=== PATIENT | male | born 1950 | race Caucasian/White ===

== ENCOUNTER → 2017-10-10 10:44 | Outpatient (CLI) | payer MEDICARE, SELFPAY ==
[2017-10-10 12:12] LABS: Absolute Lymphocyte Count 2.08 X10^3/ul (0.83-4.51); Absolute Neutrophil Count 4.5 X10^3/uL (2.0-7.7); Basophil# 0.01 X10^3/uL; Basophil% 0.1 % (0-1); Eosinophil# 0.05 X10^3/uL; Eosinophils% 0.7 % (0-5); Hematocrit 38.5 % (40-54); Hemoglobin 13.4 g/dl (13.0-16.5); Lymphocyte # 2.08 X10^3/ul (4.0); Lymphocyte % 29.5 % (19-41); Mean Corp Hgb Conc 34.8 g/gl (32-36); Mean Corpuscular Volume 91.9 fL (80-94); Mean Platelet Vol. 9.6 fl (6.2-12.0); Monocyte# 0.43 X10^3/uL; Monocyte% 6.1 % (0-10); Neutrophil # 4.47 X10^3/uL (2.7-7.7); Neutrophil % 63.3 % (47-70); Platelet Count 232 K/mm3 (150-450); RBC Distribution Width CV 13.2 % (11.6-14.6); RBC Distribution Width SD 43.6 fl (35.1-43.9); Red Blood Count 4.19 M/mm3 (4.6-6.2); White Blood Count 7.1 K/mm3 (4.4-11.0)
[2017-10-10 12:15] LABS: POSITIVE COUNT NO; POSITIVE DIFFERENTIAL NO; POSITIVE MORPHOLOGY NO
[2017-10-10 12:49] LABS: Anion Gap 12 (5-15); BUN 12 mg/dL (7-18); BUN/Creat Ratio 17.9 RATIO (10-20); Chloride 106 mmol/L (98-107); Cholesterol 156 mg/dL (200); Creatinine, Serum 0.67 mg/dL (0.70-1.30); EST Glomerular Filtration Rate 127 mL/min (>60); Est Glom Filt Rate - Afr Amer 153 mL/min (>60); Glucose 79 mg/dL (74-106); High Density Lipoprotein 56 mg/dL; PSA,Total - Annual Screen 0.64 ng/mL (0.00-4.00); Potassium 3.4 mmol/L (3.5-5.1); Sodium Level 140 mmol/L (136-145); Triglycerides 61 mg/dL; Very Low Density Lipoprotein 12 mg/dL (5-40)
== END ==
PROVIDERS: Family Provider Family Medicine; PCP Family Medicine; Visit Provider Family Medicine
DX: I10 Essential (primary) hypertension (principal); N40.0 Benign prostatic hyperplasia without lower urinary tract symptoms
CPT/HCPCS: 36415; 80048; 80061; 84153; 85025; G0103

== ENCOUNTER → 2018-10-09 17:11 | Outpatient (CLI) | payer OTHER, SELFPAY ==
--- NOTE | 2018-10-09 17:18 | CT_ITS ---
Exam: Noncontrast CT of the right distal forearm and wrist. 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 FINDINGS: There is comminuted fracture through the distal radial metaphysis with extension into the articular surface. No displacement or distraction fragments. No significant impaction. No significant distraction of fragments. Nondisplaced fracture through the tip of the ulna. No dislocations. No disruption of the radioulnar joint. No other fractures or dislocations. Degenerative changes throughout the wrist. Grossly normal soft tissues. CT/Extremity Upper without Contra IMPRESSION: There is comminuted fractures through the distal radial metaphysis extending into the articular surface. No significant distraction, displacement, or impaction of the fracture fragments. Nondisplaced fracture of the tip of the ulnar styloid. Electronically Signed: Stoney Schumacher MD at 18:05 EDT , Service support ,
== END ==
PROVIDERS: Family Provider Family Medicine; PCP Family Medicine; Referring Provider Physician Assistant; Visit Provider Physician Assistant
DX: S52.571A Other intraarticular fracture of lower end of right radius, initial encounter for closed fracture (principal); X58.XXXA Exposure to other specified factors, initial encounter; Y93.9 Activity, unspecified; Y92.9 Unspecified place or not applicable; Y99.9 Unspecified external cause status
CPT/HCPCS: 73200

== ENCOUNTER → 2018-11-16 09:23 | Outpatient (CLI) | payer MEDICARE, SELFPAY ==
[2018-11-16 12:50] LABS: Anion Gap 6 (5-15); BUN 11 mg/dL (7-18); BUN/Creat Ratio 18.2 RATIO (10-20); Calcium,Total 8.9 mg/dL (8.5-10.1); Chloride 109 mmol/L (98-107); Cholesterol 155 mg/dL (200); EST Glomerular Filtration Rate 142 mL/min (>60); Est Glom Filt Rate - Afr Amer 172 mL/min (>60); Glucose 86 mg/dL (74-106); High Density Lipoprotein 53 mg/dL; PSA,Total - Annual Screen 0.62 ng/mL (0.00-4.00); Potassium 4.1 mmol/L (3.5-5.1); Sodium Level 141 mmol/L (136-145); Triglycerides 52 mg/dL; Very Low Density Lipoprotein 10 mg/dL (5-40)
== END ==
PROVIDERS: Family Provider Family Medicine; PCP Family Medicine; Visit Provider Family Medicine
DX: I10 Essential (primary) hypertension (principal); N40.0 Benign prostatic hyperplasia without lower urinary tract symptoms
CPT/HCPCS: 36415; 80048; 80061; 84153; G0103

== ENCOUNTER → 2020-05-12 08:26 | Outpatient (CLI) | payer MEDICARE, SELFPAY ==
[2020-05-12 10:49] LABS: AST(SGOT) 16 U/L (15-37); Alanine Aminotransfer ALT/SGPT 25 U/L (16-61); Albumin, Serum 3.6 g/dL (3.2-5.0); Alkaline Phosphatase 76 U/L (45-117); Anion Gap 5 (5-15); BUN 11 mg/dL (7-18); BUN/Creat Ratio 18.3 RATIO (10-20); Calcium,Total 8.6 mg/dL (8.5-10.1); Chloride 107 mmol/L (98-107); Cholesterol 152 mg/dL (200); EST Glomerular Filtration Rate 142 mL/min (>60); Est Glom Filt Rate - Afr Amer 172 mL/min (>60); Globulin 3.6 g/dL (2.2-4.2); Glucose 86 mg/dL (74-106); High Density Lipoprotein 51 mg/dL; PSA,Total - Annual Screen 0.58 ng/mL (0.00-4.00); Potassium 3.9 mmol/L (3.5-5.1); Protein, Total 7.2 g/dL (6.4-8.2); Sodium Level 137 mmol/L (136-145); Triglycerides 68 mg/dL; Very Low Density Lipoprotein 14 mg/dL (5-40)
[2020-05-12 11:17] LABS: Hepatitis C Antibody Non-Reactive (Nonreactive)
== END ==
PROVIDERS: PCP Family Medicine; Referring Provider Family Medicine; Visit Provider Family Medicine
DX: I10 Essential (primary) hypertension (principal); N40.0 Benign prostatic hyperplasia without lower urinary tract symptoms; Z11.59 Encounter for screening for other viral diseases; Z12.5 Encounter for screening for malignant neoplasm of prostate
CPT/HCPCS: 36415; 80053; 80061; 84153; 86803; G0103

== ENCOUNTER → 2021-06-15 | Outpatient (CLI) | payer MEDICARE, SELFPAY ==
[2021-06-15 10:51] LABS: AST(SGOT) 19 U/L (15-37); Alanine Aminotransfer ALT/SGPT 25 U/L (16-61); Albumin, Serum 3.5 g/dL (3.2-5.0); Alkaline Phosphatase 73 U/L (45-117); Anion Gap 4 (5-15); BUN 16 mg/dL (7-18); BUN/Creat Ratio 23.1 RATIO (10-20); Calcium,Total 8.2 mg/dL (8.5-10.1); Chloride 109 mmol/L (98-107); Cholesterol 157 mg/dL (200); Creatinine, Serum 0.69 mg/dL (0.70-1.30); EST Glomerular Filtration Rate 120 mL/min (>60); Est Glom Filt Rate - Afr Amer 146 mL/min (>60); Globulin 3.4 g/dL (2.2-4.2); Glucose 94 mg/dL (74-106); High Density Lipoprotein 48 mg/dL; Potassium 3.9 mmol/L (3.5-5.1); Protein, Total 6.9 g/dL (6.4-8.2); Sodium Level 141 mmol/L (136-145); Triglycerides 53 mg/dL; Very Low Density Lipoprotein 11 mg/dL (5-40)
== END | disposition home or self-care (01) ==
LOC: MFPLAB 09:08
PROVIDERS: PCP Family Medicine; Referring Provider Family Medicine; Visit Provider Family Medicine
DX: I10 Essential (primary) hypertension (principal); N40.0 Benign prostatic hyperplasia without lower urinary tract symptoms; Z12.5 Encounter for screening for malignant neoplasm of prostate
CPT/HCPCS: 36415; 80053; 80061; 84153; G0103

== ENCOUNTER → 2021-08-10 | Outpatient (CLI) | payer MEDICARE, SELFPAY ==
--- NOTE | 2021-08-10 09:12 | RAD_ITS ---
STUDY: XR Wrist Min 3 Views REASON FOR EXAM: Male, 71 years old. Technologist Notes RECENT FALL, PAIN AND SWELLING TO LEFT WRIST left wrist pain TECHNIQUE: XR Wrist Min 3 Views LEFT COMPARISON: None FINDINGS: There are no acute findings of the visualized distal radius and ulna. There are no acute findings of the radiocarpal articulation. Normal distal radioulnar articulation. Normal carpal bones. Normal carpal articulations. There is degenerative arthrosis of the carpometacarpal articulation of the thumb. Normal second through fifth carpometacarpal articulations. There are no acute findings of the visualized metacarpal bones. There is non specific soft tissue swelling. There is calcification in the joint space which may signify calcium pyrophosphate deposition disease. RAD/Wrist min 3 Views IMPRESSION: There is non specific soft tissue swelling. Electronically Signed: Tuan Andres MD at 17:00 EDT ,
== END | disposition home or self-care (01) ==
LOC: MTRAD 09:09
PROVIDERS: PCP Family Medicine; Referring Provider Family Medicine; Visit Provider Family Medicine
DX: S69.92XA Unspecified injury of left wrist, hand and finger(s), initial encounter (principal)
CPT/HCPCS: 73110

== ENCOUNTER → 2022-07-15 | Outpatient (CLI) | payer MEDICARE, SELFPAY ==
[2022-07-15 11:26] LABS: Anion Gap 6 (5-15); BUN 13 mg/dL (7-18); BUN/Creat Ratio 19.4 RATIO (10-20); Chloride 111 mmol/L (98-107); Cholesterol 156 mg/dL (200); Creatinine, Serum 0.67 mg/dL (0.70-1.30); EST Glomerular Filtration Rate 124 mL/min (>60); Est Glom Filt Rate - Afr Amer 151 mL/min (>60); Glucose 100 mg/dL (74-106); High Density Lipoprotein 50 mg/dL; PSA,Total - Annual Screen 0.69 ng/mL (0.00-4.00); Potassium 4.2 mmol/L (3.5-5.1); Sodium Level 141 mmol/L (136-145); Triglycerides 76 mg/dL; Very Low Density Lipoprotein 15 mg/dL (5-40)
== END | disposition home or self-care (01) ==
LOC: MFPLAB 09:07
PROVIDERS: PCP Family Medicine; Visit Provider Family Medicine
DX: I10 Essential (primary) hypertension (principal); N40.0 Benign prostatic hyperplasia without lower urinary tract symptoms; Z12.5 Encounter for screening for malignant neoplasm of prostate
CPT/HCPCS: 36415; 80048; 80061; 84153; G0103

== ENCOUNTER → 2022-12-16 | Outpatient (CLI) | payer MEDICARE, SELFPAY ==
[2022-12-16 15:11] LABS: Hematocrit 40.8 % (40-54); Mean Corp Hgb Conc 34.3 g/dL (32-36); Mean Corpuscular Hgb 31.9 pg (27.0-32.0); Mean Corpuscular Volume 92.9 fL (80-94); Platelet Count 221 K/mm3 (150-450); RBC Distribution Width CV 12.7 % (11.6-14.6); RBC Distribution Width SD 43.8 fl (35.1-43.9); Red Blood Count 4.39 M/mm3 (4.6-6.2); White Blood Count 8.1 K/mm3 (4.4-11.0)
[2022-12-16 15:35] LABS: Anion Gap 6 (5-15); BUN 15 mg/dL (7-18); BUN/Creat Ratio 23.5 RATIO (10-20); Calcium,Total 9.2 mg/dL (8.5-10.1); Chloride 107 mmol/L (98-107); Creatinine, Serum 0.64 mg/dL (0.70-1.30); EST Glomerular Filtration Rate 131 mL/min (>60); Est Glom Filt Rate - Afr Amer 159 mL/min (>60); Glucose 87 mg/dL (74-106); Magnesium 2.3 mg/dL (1.6-2.6); Potassium 3.8 mmol/L (3.5-5.1); Sodium Level 140 mmol/L (136-145); Thyroid Stim Hormone (TSH) 2.24 uIU/mL (0.358-3.74)
== END | disposition home or self-care (01) ==
LOC: MTLAB 12:45
PROVIDERS: PCP Family Medicine; Referring Provider Family Medicine; Visit Provider Family Medicine
DX: I48.92 Unspecified atrial flutter (principal); Z79.899 Other long term (current) drug therapy
CPT/HCPCS: 36415; 80048; 83735; 84443; 85027

== ENCOUNTER → 2023-01-20 | Outpatient (CLI) | payer MEDICARE, SELFPAY ==
[2023-01-20 12:31] LABS: Anion Gap 7 (5-15); BUN 14 mg/dL (7-18); BUN/Creat Ratio 20.1 RATIO (10-20); Calcium,Total 8.7 mg/dL (8.5-10.1); Chloride 107 mmol/L (98-107); EST Glomerular Filtration Rate 119 mL/min (>60); Est Glom Filt Rate - Afr Amer 144 mL/min (>60); Glucose 112 mg/dL (74-106); Potassium 3.6 mmol/L (3.5-5.1); Sodium Level 140 mmol/L (136-145)
== END | disposition home or self-care (01) ==
PROVIDERS: PCP Family Medicine; Referring Provider Internal Medicine Cardiovascular Disease; Visit Provider Internal Medicine Cardiovascular Disease
DX: I48.91 Unspecified atrial fibrillation (principal); R53.83 Other fatigue; Z86.79 Personal history of other diseases of the circulatory system
CPT/HCPCS: 36415; 80048

== ENCOUNTER → 2023-05-21 | Outpatient (CLI) | payer MEDICARE, SELFPAY ==
--- NOTE | 2023-05-21 12:37 | RAD_ITS ---
STUDY: X-RAY - UNILATERAL RIBS ( LEFT ) WITH CHEST REASON FOR EXAM: Male, 73 years old. pain after fall TECHNIQUE - RIBS: 4 view(s) of the ribs. TECHNIQUE - CHEST: Single PA view of the chest. COMPARISON: None. FINDINGS - RIBS: Healed fracture of the lateral left fourth rib. Nondisplaced fractures lateral left sixth, seventh, eighth, ninth ribs. FINDINGS - CHEST: The lungs are clear and expanded. There is no demonstrated pleural abnormality. Normal size heart. Normal mediastinum and tim. Normal visualized pulmonary arteries. Normal visualized aortic arch and descending thoracic aorta. Normal visualized thoracic spine. Normal visualized ribs, clavicles, and shoulders. There is no demonstrated abnormality of the visualized soft tissue structures of the upper abdomen. RAD/Ribs Uni Min 3V w/PA Chest IMPRESSION: RIBS: Acute nondisplaced fracture the lateral left sixth, seventh, eighth, ninth ribs. CHEST: No pneumothorax or hemothorax. Electronically Signed: Umberto Concepcion MD at 20:26 EDT ,
== END | disposition home or self-care (01) ==
PROVIDERS: PCP Family Medicine; Referring Provider Family Medicine; Visit Provider Family Medicine
DX: I48.91 Unspecified atrial fibrillation (principal)
CPT/HCPCS: 71101

== ENCOUNTER → 2023-11-17 | Outpatient (CLI) | payer MEDICARE, SELFPAY ==
[2023-11-17 16:20] LABS: ALB/GLOB Ratio 1.1 RATIO (0.9-2.4); AST(SGOT) 22 U/L (15-37); Alanine Aminotransfer ALT/SGPT 25 U/L (16-61); Albumin, Serum 3.8 g/dL (3.2-5.0); Alkaline Phosphatase 85 U/L (45-117); Anion Gap 7 (5-15); BUN 9 mg/dL (7-18); BUN/Creat Ratio 14.3 RATIO (10-20); Calcium,Total 9.3 mg/dL (8.5-10.1); Chloride 107 mmol/L (98-107); Cholesterol 168 mg/dL (200); Creatinine, Serum 0.63 mg/dL (0.70-1.30); EST Glomerular Filtration Rate 134 mL/min (>60); Est Glom Filt Rate - Afr Amer 162 mL/min (>60); Globulin 3.5 g/dL (2.2-4.2); Glucose 82 mg/dL (74-106); High Density Lipoprotein 54 mg/dL; PSA,Total - Annual Screen 0.59 ng/mL (0.00-4.00); Potassium 3.7 mmol/L (3.5-5.1); Protein, Total 7.3 g/dL (6.4-8.2); Sodium Level 140 mmol/L (136-145); Triglycerides 71 mg/dL; Very Low Density Lipoprotein 14 mg/dL (5-40)
== END | disposition home or self-care (01) ==
LOC: MTLAB 11:20
PROVIDERS: PCP Family Medicine; Referring Provider Family Medicine; Visit Provider Family Medicine
DX: Z12.5 Encounter for screening for malignant neoplasm of prostate (principal); I10 Essential (primary) hypertension
CPT/HCPCS: 36415; 80053; 80061; 84153; G0103

== ENCOUNTER → 2024-11-26 | Outpatient (CLI) | payer MEDICARE, SELFPAY ==
--- OUTSIDE RECORDS SUMMARY | 2024-11-26 09:01 | XMS RPT_ITS | CCD ---
Author Organization [facility] Care Team Providers Care Chemical Unit Operator Name Role Phone Miguel Angel HUBER, Martine Sue Unavailable YNES Herman RN, Maggie Pia Unavailable Unavailhawa Herman RN RN, Maggie A Unavailable Unavailhawa Herman RN RN, Maggie A Unavailable Unavailhawa Michelle MD, Martine Sue Unavailable YNES Herman RN, Maggie A Unavailable Caridad DAMIAN MD, DR KEITA Primary Care Physician MARIUSZ HUBER, SALLY Attending Unavailable YNES HUBER, DR KEITA Primary Care Faraz VEE MD, SALLY Attending Unavailable YNES HUBER, DR KEITA Primary Care Dr. Neil Mixon Primary Care Provider Dr. Neil Damian Referring Provider Dr. Zane Bowles Attending Provider Dr. Bossman Damian MD Primary Care Provider Dr. Bossman Damian MD Referring Provider [phone] Dr. Zane Bowles MD Attending Provider Bossman Damian Primary Care Unavailable Zane Bowles Attending Unavailable Bossman Damian Referring Unavailable Bossman Damian Referring Unavailable Bossman Damian Attending Unavailable Bossman Damian Primary Care Unavailable Medications Current Medications Medication Drug Class(es) Dates Sig (Normalized) Sig (Original) amLODIPine 5 mg oral tablet (1 source) Dihydropyridine Calcium Channel Violeta Start: 10-14-2024 take 1 tablet by mouth once daily Amlodipine 5 mg tablet Active 5 mg PO daily October 14, 2024 12:00am 24 hr dilTIAZem hydrochloride 180 mg extended release oral tablet (5 sources) Calcium Channel Violeta Start: 01-22-2023 take 1 tablet by mouth every hour, then take 1 tablet by mouth once daily dilTIAZem 180 mg/24 hours oral tablet, extended release Dose : 180 mg = 1 tab(s), Oral, qDay, # 60 tab(s), 0 Refill(s) Start Date: 01/22/23 Status: Ordered Start: 01-08-2023 End: 10-14-2024 take 1 capsule by mouth once daily Diltiazem Hcl 180 mg capsule,extended release 24 hr Discontinued 180 mg PO DAILY January 08, 2023 1:00am October 14, 2024 1:08pm hydroCHLOROthiazide 12.5 mg oral tablet (1 source) Thiazide Diuretic Start: 04-06-2019 take 1 tablet by mouth once daily hydroCHLOROthiazide 12.5 mg oral tablet TAKE 1 TABLET BY MOUTH ONCE DAILY Start Date: 04/06/19 Status: Ordered hydroCHLOROthiazide 25 mg / losartan potassium 100 mg oral tablet (15 sources) Thiazide Diuretic, Angiotensin 2 Receptor Violeta Start: 01-08-2023 take 1 tablet by mouth once daily hydrochlorothiazide-gunnar gaetano 25-100 mg oral tablet Dose = 1 tab(s), Oral, qDay, # 30 tab(s), 0 Refill(s) Start Date: 01/22/23 Status: Ordered Start: 01-08-2023 take 1 tablet by sea th once daily Losartan-Hydrochlorothiazide Active 1 TA BLET PO DAILY January 08, 2023 1:00am Start: 12-27-2022 End: 01-08-2023 Losartan-Hydrochlorothiazide 50-12.5 mg tablet Discontinued 1 {tbl} PO DAILY December 27, 2022 1:00am January 08, 2023 10:46am Start: 12-27-2022 End: 01-08-2023 take 1 tablet by mouth once daily Losartan-Hydrochlorothiazide Discontinue d 1 TABLET PO DAILY December 27, 2022 1:00am January 08, 2023 10:46am Start: 07-23-2016 take 1 tablet by sea th once daily HYZAAR 50-12.5 MG TABS One tablet by sea th daily LOSARTAN POTASSIUM-HCTZ [id number] Krystle Abarca Start: 07-23-2016 take 1 tablet by sea th once daily HYZAAR 50-12.5 MG TABS One tablet by sea th daily LOSARTAN POTASSIUM-HCTZ [id number] Krystle Abarca losartan potassium 50 mg oral tablet (1 source) Angiotensin 2 Receptor Violeta Start: 04-06-2019 take 1 tablet by mouth once daily losartan 50 mg oral tablet TAKE 1 TABLET BY MOUTH ONCE DAILY Start Date: 04/06/19 Status: Ordered tamsulosin hydrochloride 0.4 mg oral capsule (13 sources) alpha-Adrenergic Violeta Start: 10-07-2018 take 1 capsule by mouth at bedtime Tamsulosin 0.4 mg capsule Active 0.4 mg PO AT BEDTIME December 27, 2022 1:00am Start: 07-23-2016 take 1 tablet by sea th once daily FLOMAX 0.4 MG CAPS One tablet by mouth daily TAMSULOSIN HCL [id number] Krystle Abarca Completed/Discontinued Medications Medication Drug Class(es) Dates Sig (Normalized) Sig (Original) apixaban 5 mg oral tablet (7 sources) Factor Xa Inhibitor Start: 12-27-2022 End: 11-18-2023 take 1 tablet by mouth twice daily Apixaban (Eliquis) 5 mg tablet Discontinued 5 mg PO TWICE A DAY November 18, 2023 12:00am November 18, 2023 9:35am aspirin 81 mg delayed release oral tablet (1 source) Platelet Aggregation Inhibitor, Nonsteroidal Anti-inflammatory Drug Start: 11-17-2023 End: 10-14-2024 Aspirin (Adult Low Dose Aspirin) 81 mg tablet,delayed release (DR/EC) Discontinued 81 mg PO daily November 17, 2023 12:00am October 14, 2024 1:07pm desoximetasone 0.0005 mg/mg topical gel (10 sources) Corticosteroid Start: 12-27-2022 End: 10-14-2024 Desoximetasone 0.05 % gel Discontinued 1 NMA TOPICAL DAILY as needed December 27, 2022 1:00am October 14, 2024 1:08pm Start: 07-23-2016 DESOXIMETASONE 0.05 % GEL as needed DESOXIMETASONE [id number] Krystle Abarca ibuprofen 200 mg oral tablet (7 sources) Nonsteroidal Anti-inflammatory Drug Start: 07-23-2016 ADVIL 200 MG TABS 800mg as needed IBUPROFEN [id number] Krystle Abarca metoprolol tartrate 50 mg oral tablet (3 sources) beta-Adrenergic Voileta Start: 12-27-2022 End: 01-08-2023 take 1 tablet by mouth twice daily Metoprolol Tartrate 50 mg tablet Discontinued 50 mg PO TWICE A DAY December 27, 2022 1:00am January 08, 2023 10:45am rizatriptan 10 mg oral tablet (7 sources) Serotonin-1b and Serotonin-1d Receptor Agonist Start: 07-23-2016 take 1 tablet by mouth once daily as needed RIZATRIPTAN BENZOATE 10 MG TABS One tablet by mouth daily as needed RIZATRIPTAN BENZOATE [id number] Krystle Abarca warfarin sodium 4 mg oral tablet (1 source) Vitamin K Antagonist Start: 11-18-2023 End: 10-14-2024 take 1 tablet by mouth once daily Warfarin 4 mg tablet Discontinued 4 mg PO daily 09 01November 18, 2023 12:00am October 14, 2024 1:08pm Problems Active Problems Problem Classification Problem Date Documented Date Episodic/Chronic Cardiac dysrhythmias (18 sources) Atrial fibrillation; Translations: [Atrial flutter] Onset: 07-23-2016 07-23-2016 Chronic Essential hypertension (5 sources) Essential hypertension; Translations: [Essential (primary) hypertension] 01-08-2023 Chronic Malaise and fatigue (4 sources) Fatigue; Translations: [Other fatigue] 01-08-2023 Episodic Other circulatory disease (4 sources) History of paroxysmal supraventricular tachycardia; Translations: [Personal history of other diseases of the circulatory system] 01-08-2023 Episodic Other circulatory disease (2 sources) Personal history of other diseases of the circulatory system; Translations: [Personal history of other diseases of circulatory system] Onset: 10-14-2024 01-08-2023 Episodic Other nutritional; endocrine; and metabolic disorders (7 sources) Overweight; Translations: [Overweight] Onset: 07-23-2016 07-23-2016 Chronic Past or Other Problems Problem Classification Problem Date Documented Da te Episodic/Chronic Headache; including migraine (7 sources) Headache; Translations: [Headache] Onset: 07-23-2016 07-23-2016 Episodic Nonmalignant breast conditions (11 sources) Gynecomastia; Translations: [Breast lump] Onset: 07-23-2016 08-02-2016 Episodic Other screening for suspected conditions (not mental disorders or infectious disease) (1 source) Encounter for screening for malignant neoplasm of prostate; Translations: [Encounter for screening for malignant neoplasm of prostate] Onset: 12-13-2023 Episodic Spondylosis; intervertebral disc disorders; other back problems (7 sources) Backache; Translations: [Dorsalgia, unspecified] Onset: 07-23-2016 07-23-2016 Episodic Results Test Name Value Interpretation Reference Range Facility Cardiology Visit Reporton Cardiology Visit Report [facility] [address] [place] [address] OFFICE VISIT Date of Service: 10/14/24 MR#: [id number] Acct: [id number] Name: DAMI KINNEY Rep #: [id number] : 1950 Provider: Dr. Zane Bowles MD Age/Sex: 74/M Location: [facility] Status: Signed HPI HPI History of Present Illness Details: This gentleman with history of atrial flutter/fibrillation and hypertension is here for follow-up visit. We last saw him in 2022. According to the patient, he has had A-fib ablation done at [facility] last year. Denies any complaints today. No chest pains. No shortness of breath. No palpitations. No orthopnea PND. No ankle edema. 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 Required: No Accompanied by: Self Is patient in pain?: No Allergies No Known Allergies Allergy (Verified 10/14/24 13:06) Medications ???Medication ???Instructions ???Recorded ???Confirmed ???Type tamsulosin 0.4 mg capsule 0.4 mg PO QHS 12/27/22 10/14/24 Hi story losartan 100 1 tab PO DAILY #90 tabs 01/08/23 0 10/14/24 Rx mg-hydrochlorothiazide 25 mg tablet apixaban 5 mg tablet (Eliquis) 5 mg PO .COMPLEX #180 tabs 4 10/14/24 Rx amlodipine 5 mg tablet 5 mg PO QDAY 10/14/24 10/14/24 His tory Ejection fraction %: 50 Have you fallen in the past year?: No PFSH Medical History PSVT (paroxysmal supraventricular tachycardia) Atrial flutter Essential hypertension Surgical History History of cardiac radiofrequency ablation (RFA) ( 1995) Family History Mother Cancer COPD (chronic obstructive pulmonary disease) Heart disease Social History Smoking Status: Never smoker how long ago did patient quit smoking: smoked cigar occasionally long time ago alcohol intake: current alcohol intake frequency: a few times a month substance use type: does not use caffeine: Yes Type: coffee Number of servings: 4 ROS Const Const: Negative for fatigue or weakness Eyes Eyes: Negative for change in vision ENT ENT: Negative for dizziness or balance problems Cardio Chest Pain: No Palpitations: No Edema: None Resp Respiratory: Negative for SOB with activity, SOB at rest or SOB orthopnea SOB lying down GI GI: Negative nausea or heartburn Musc Musc: Negative for balance problems Neuro Neuro: Negative for dizziness, lightheadedness, near syncope, syncope or weakness Endo Endo: Negative for fatigue Cardiology Exam Const Appearance: comfortable and no acute distress Nutritional Appearance: well nourished Neck Neck: no JVD Carotids: Negative bruit Chest Auscultation: Bilateral: Clear to Auscultation Cardio Rate: regular rate Rhythm: regular rhythm Heart sounds: S1 normal and S2 normal Neuro General: patient alert, patient awake and patient oriented x3 Extremities Lower Extremity Edema: None: Bilateral Supplemental Info Supplemental Information Labs: LDL Cholesterol 100 mg/dL (0-130) HDL Cholesterol 54 mg/dL (40-) Cholesterol 168 mg/dL (200) Triglycerides 71 mg/dL (-199) Diagnostics: Electrocardiogram Pulmonary: No Data to Display Past Visits: Cardiology Visit 10/14/24 Assessment and Plan Assessment and Plan (1) Atrial fibrillation: Status: Chronic Plan: Status post ablation. Will try to get records from [facility]. Patient's CHADS2???VASc score is 2. Continue apixaban. (2) Essential hypertension: Status: Chronic Plan: Continue losartan hydrochlorothiazide and amlodipine. (3) History of PSVT (paroxysmal supraventricular tachycardia): Status: Resolved Plan: History of ablation. Plan Details Additional Comments: Lipid management as per PCP. Follow Up: 12 Months Coding Level of Care Code Off vis,est,level 4 Diagnoses Atrial fibrillation I48.91 Essential hypertension I10 History of PSVT (paroxysmal supraventricular tachycardia) Z86.79 Coding Level of Care Code Off vis,est,level 4 Diagnoses Atrial fibrillation I48.91 Essential hypertension I10 History of PSVT (paroxysmal supraventricular tachycardia) Z86.79 Clinical Quality Measures Falls Risk Screening/Assistive Devices Have you fallen in the past year?: No Cardiac Ejection fraction %: 50 10/14/24 1344 Date Zane (more content not included)... Normal [facility] Metabolic Prof ilon 11-17-2023 Albumin [Mass/Vol] 3.8 g/dL Normal 3.2-5.0 [facility] Comment on above: Order Comment: Order Date: 07/28/23 Order Info: [id number] - CMP Order Info: [id number] - LIPID Order Info: [id number] - PSA Performed By: #### L 500.4100, L500.4050, L501.9910 #### [facility] [place], [address] Albumin/Globulin [Mass ratio] 1.1 {ratio} Normal 0.9-2.4 [facility] Comment on above: Order Comment: Order Date: 07/28/23 Order Info: [id number] - CMP Order Info: [id number] - LIPID Order Info: [id number] - PSA Performed By: #### L 500.4100, L500.4050, L501.9910 #### [facility] [address] [place], [address] ALK P 85 U/L Normal 45-117 [facility] Comment on above: Order Comment: Order Date: 07/28/23 Order Info: [id number]- - CMP Order Info: - LIPID Order Info: [id number] - PSA Performed By: #### L 500.4100, L500.4050, [id number] #### [facility] [address] [place], [address] ALT [Catalytic activity/Vol] 25 U/L Normal 16-61 [facility] Comment on above: Order Comment: Order Date: 07/28/23 Order Info: [id number] - CMP Order Info: - LIPID Order Info: [id number] - PSA Performed By: #### L 500.4100, L500.4050, [id number] #### [facility] [address] [place], [address] AST [Catalytic activity/Vol] 22 U/L Normal 15-37 [facility] Comment on above: Order Comment: Order Date: 07/28/23 Order Info: [id number] - CMP Order Info: - LIPID Order Info: [id number] - PSA Performed By: #### L 500.4100, L500.4050, L501.9910 #### [facility] [address] [place], [address] Bilirubin [Mass/Vol] 0.60 mg/dL Normal 0.20-1.00 [facility] Comment on above: Order Comment: Order Date: 07/28/23 Order Info: [id number] - CMP Order Info: [id number] - LIPID Order Info: [id number] - PSA Result Comment: For patients on eltrombopag therapy, use of Dimension Hartman TBIL is not recommended. Performed By: #### L 500.4100, L500.4050, L501.9910 #### [facility] [address] [place], [address] BUN/CRE 14.3 RATIO Normal 10-20 [facility] Comment on above: Order Comment: Order Date: 07/28/23 Order Info: [id number] - CMP Order Info: [id number] - LIPID Order Info: [id number] - PSA Performed By: #### L 500.4100, L500.4050, [id number] #### [facility] [address] [place], [address] CA,Total 9.3 mg/dL Normal 8.5-10.1 [facility] Comment on above: Order Comment: Order Date: 07/28/23 Order Info: [id number] - CMP Order Info: - LIPID Order Info: [id number] - PSA Performed By: #### L 500.4100, L500.4050, [id number] #### [facility] [address] [place], [address] Chloride [Moles/Vol] 107 mmol/L Normal 98-107 [facility] Comment on above: Order Comment: Order Date: 07/28/23 Order Info: [id number] - CMP Order Info: [id number] - LIPID Order Info: [id number] - PSA Performed By: #### L 500.4100, L500.4050, [id number] #### [facility] [address] [place], [address] CO2 [Moles/Vol] 26.0 mmol/L Normal 21.0-32.0 [facility] Comment on above: Order Comment: Order Date: 07/28/23 Order Info: [id number] - CMP Order Info: [id number] - LIPID Order Info: [id number] - PSA Performed By: #### L 500.4100, L500.4050, [id number] #### [facility] [address] [place], [address] Creatinine [Mass/Vol] 0.63 mg/dL Low 0.70-1.30 [facility] Comment on above: Order Comment: Order Date: 07/28/23 Order Info: 07- - CMP Order Info: [id number] - LIPID Order Info: [id number] - PSA Result Comment: The validity of the calculated GFR GFRAA in patients over 70 years has not been determined. Clinical correlation is essential. Performed By: #### L 500.4100, L500.4050, L501.9910 #### [facility] [address] [place], [address] EST GFR - AA 162 mL/min Normal >60 [facility] Comment on above: Order Comment: Order Date: 07/28/23 Order Info: [id number] - CMP Order Info: - LIPID Order Info: [id number] - PSA Result Comment: Afri can Malaysian GFR Calc Performed By: #### L 500.4100, L500.4050, [id number] #### [facility] [address] [place], [address] GAP 7 Normal 5-15 [facility] Comment on above: Order Comment: Order Date: 07/28/23 Order Info: [id number] - CMP Order Info: [id number] - LIPID Order Info: [id number] - PSA Performed By: #### L 500.4100, L500.4050, [id number] #### [facility] [address] [place], [address] GFR/1.73 sq M.predicted among non-blacks MDRD (S/P/Bld) [Vol rate/Area] 134 mL/min/{1.73_m2} Normal >60 [facility] Comment on above: Order Comment: Order Date: 07/28/23 Order Info: 07- - CMP Order Info: - LIPID Order Info: [id number] - PSA Result Comment: Non- GFR Calc Performed By: #### L 500.4100, L500.4050, [id number] #### [facility] [address] [place], [address] Globulin (S) [Mass/Vol] 3.5 g/dL Normal 2.2-4.2 [facility] Comment on above: Order Comment: Order Date: 07/28/23 Order Info: [id number]- - CMP Order Info: - LIPID Order Info: [id number] - PSA Performed By: #### L 500.4100, L500.4050, [id number] #### [facility] [address] [place], [address] Glucose [Mass/Vol] 82 mg/dL Normal 74-106 [facility] Comment on above: Order Comment: Order Date: 07/28/23 Order Info: [id number] - CMP Order Info: - LIPID Order Info: [id number] - PSA Performed By: #### L 500.4100, L500.4050, [id number] #### [facility] [address] [place], [address] Potassium [Moles/Vol] 3.7 mmol/L Normal 3.5-5.1 [facility] Comment on above: Order Comment: Order Date: 07/28/23 Order Info: [id number] - CMP Order Info: - LIPID Order Info: [id number] - PSA Performed By: #### L 500.4100, L500.4050, [id number] #### [facility] [address] [place], [address] Sodium [Moles/Vol] 140 mmol/L Normal 136-145 [facility] Comment on above: Order Comment: Order Date: 07/28/23 Order Info: [id number] - CMP Order Info: [id number] - LIPID Order Info: [id number] - PSA Performed By: #### L 500.4100, L500.4050, [id number] #### [facility] [address] [place], [address] T PROT 7.3 g/dL Normal 6.4-8.2 [facility] Comment on above: Order Comment: Order Date: 07/28/23 Order Info: [id number] - CMP Order Info: [id number] - LIPID Order Info: [id number] - PSA Performed By: #### L 500.4100, L500.4050, [id number] #### [facility] [address] [place], [address] Urea nitrogen [Mass/Vol] 9 mg/dL Normal 7-18 [facility] Comment on above: Order Comment: Order Date: 07/28/23 Order Info: [id number] - CMP Order Info: [id number] - LIPID Order Info: [id number] - PSA Performed By: #### L 500.4100, L500.4050, [id number] #### [facility] [address] [place], [address] Lipid Profileon 11-17-2023 Cholesterol [Mass/Vol] 168 mg/dL Normal 200 [facility] Comment on above: Order Comment: Order Date: 07/28/23 Order Info: [id number] - CMP Order Info: [id number] - LIPID Order Info: [id number] - PSA Result Comment: <200 mg/dL Desirable 200-240 mg/dL Borderline >240 mg/dL High Risk Performed By: #### L 500.4100, L500.4050, [id number] #### [facility] [address] [place], [address] Cholesterol in HDL [Mass/Vol] 54 mg/dL Normal [facility] Comment on above: Order Comment: Order Date: 07/28/23 Order Info: [id number] - CMP Order Info: [id number] - LIPID Order Info: [id number] - PSA Result Comment: The drugs N-Acetylcysteine and Metamizole may falsely depress this assay. Reference Range HDL <40 mg/dL Low HDL Cholesterol HDL >or= 60 mg/dL High HDL Cholesterol Performed By: #### L 500.4100, L500.4050, L501.9910 #### [facility] [address] [place], [address] Cholesterol in LDL [Mass/Vol] 100 mg/dL Normal 0-130 [facility] Comment on above: Order Comment: Order Date: 07/28/23 Order Info: [id number] - CMP Order Info: [id number] - LIPID Order Info: [id number] - PSA Performed By: #### L 500.4100, L500.4050, [id number] #### [facility] [address] [place], [address] Cholesterol in VLDL [Mass/Vol] 14 mg/dL Normal 5-40 [facility] Comment on above: Order Comment: Order Date: 07/28/23 Order Info: [id number] - CMP Order Info: [id number] - LIPID Order Info: [id number] - PSA Performed By: #### L 500.4100, L500.4050, [id number] #### [facility] [address] [place], [address] Triglyceride [Mass/Vol] 71 mg/dL Normal [facility] Comment on above: Order Comment: Order Date: 07/28/23 Order Info: [id number] - CMP Order Info: [id number] - LIPID Order Info: [id number] - PSA Result Comment: The drugs N-Acetylcysteine and Metamizole may falsely depress this assay. Serum Triglycerides Reference Interval Normal <150 mg/dL Borderline high 150 - 199 mg/dL High 200 - 499 mg/dL Very High > or = 500 mg/dL Performed By: #### L 500.4100, L500.4050, L501.9910 #### [facility] [address] [place], [address] PSA,Total - Annual Screenon 11-17-2023 PSA,TOT SCREEN 0.59 ng/mL Normal 0.00-4.00 [facility] Comment on above: Order Comment: Order Date: 07/28/23 Order Info: [id number] - CMP Order Info: [id number] - LIPID Order Info: [id number] - PSA Result Comment: This test was performed using the TPSA assay method for the [employer] chemistry system. Values obtained with different assay methods cannot be used interchangably. When changing PSA assays in the course of monitoring a patient, additional sequential testing should be carried out to confirm baseline values. Performed By: #### L 500.4100, L500.4050, L501.9910 #### [facility] [address] [place], [address] .Auto Diffon 04-04-2023 Basophil, Absolute 0.0 10 3/mcL Normal 0.0-0.3 [facility] ([place]) Comment on above: Performed By: #### P RO, ADIFF, BMP, ANEU, CBC, ABSGEL, ABOGEL, GFR #### [address] [address] Basophils/100 WBC (Bld) 0.5 % Normal 0.0-2.5 [facility] ([place]) Comment on above: Performed By: #### P RO, ADIFF, BMP, ANEU, CBC, ABSGEL, ABOGEL, GFR #### [address] [address] Eosinophil, Absolute 0.1 10 3/mcL Normal 0.0-0.7 [facility] ([place]) Comment on above: Performed By: #### P RO, ADIFF, BMP, ANEU, CBC, ABSGEL, ABOGEL, GFR #### [address] [address] Eosinophils/100 WBC (Bld) 1.7 % Normal 0.0-6.0 [facility] ([place]) Comment on above: Performed By: #### P RO, ADIFF, BMP, ANEU, CBC, ABSGEL, ABOGEL, GFR #### [address] [address] Lymphocyte, Absolute 1.7 10 3/mcL Normal 0.9-4.3 [facility] ([place]) Comment on above: Performed By: #### P RO, ADIFF, BMP, ANEU, CBC, ABSGEL, ABOGEL, GFR #### [address] [address] Lymphocytes/100 WBC (Bld) 25.2 % Normal 20.0-40.0 [facility] ([place]) Comment on above: Performed By: #### P RO, ADIFF, BMP, ANEU, CBC, ABSGEL, ABOGEL, GFR #### [address] [address] Monocyte, Absolute 0.5 10 3/mcL Normal 0.1-1.4 [facility] ([place]) Comment on above: Performed By: #### P RO, ADIFF, BMP, ANEU, CBC, ABSGEL, ABOGEL, GFR #### [address] [address] Monocytes/100 WBC (Bld) 7.3 % Normal 2.0-13.0 [facility] ([place]) Comment on above: Performed By: #### P RO, ADIFF, BMP, ANEU, CBC, ABSGEL, ABOGEL, GFR #### [address] [address] Neutrophils/100 WBC (Bld) 65.3 % Normal 50.0-75.0 [facility] ([place]) Comment on above: Performed By: #### P RO, ADIFF, BMP, ANEU, CBC, ABSGEL, ABOGEL, GFR #### [address] [address] .GFRon 04-04-2023 GFR >60 Normal [facility] ([place]) Comment on above: Result Comment: GFR Population mean for , Non- Americans Ages 20-29 = 116 mL/min/1.73 sq.m. Ages 30-39 = 107 mL/min/1.73 sq.m. Ages 40-49 = 99 mL/min/1.73 sq.m. Ages 50-59 = 93 mL/min/1.73 sq.m. Ages 60-69 = 85 mL/min/1.73 sq.m. Ages 70+ = 75 mL/min/1.73 sq.m. Chronic Kidney Disease: Less than 60 mL/min/1.73 square meters End Stage Renal Disease: Less than 15 mL/min/1.73 square meters Performed By: #### P RO, ADIFF, BMP, ANEU, CBC, ABSGEL, ABOGEL, GFR #### [address] [address] GFR Non- >60 Normal [facility] ([place]) Comment on above: Result Comment: GFR Population mean for , Non- Americans Ages 20-29 = 116 mL/min/1.73 sq.m. Ages 30-39 = 107 mL/min/1.73 sq.m. Ages 40-49 = 99 mL/min/1.73 sq.m. Ages 50-59 = 93 mL/min/1.73 sq.m. Ages 60-69 = 85 mL/min/1.73 sq.m. Ages 70+ = 75 mL/min/1.73 sq.m. Chronic Kidney Disease: Less than 60 mL/min/1.73 square meters End Stage Renal Disease: Less than 15 mL/min/1.73 square meters Performed By: #### P RO, ADIFF, BMP, ANEU, CBC, ABSGEL, ABOGEL, GFR #### [address] [address] .NEUABSon 04-04-2023 Neutrophil, Absolute 4.4 10 3/mcL Normal 2.3-8.1 [facility] ([place]) Comment on above: Performed By: #### P RO, ADIFF, BMP, ANEU, CBC, ABSGEL, ABOGEL, GFR #### [address] [address] ABO/Rh (Gel)on 04-04-2023 ABO/Rh Interp Positive Invalid Interpretation Code [facility] ([place]) Comment on above: Performed By: #### P RO, ADIFF, BMP, ANEU, CBC, ABSGEL, ABOGEL, GFR #### [address] [address] ABS (Gel)on 04-04-2023 ABSC Interp (Gel) Negative Normal [facility] ([place]) Comment on above: Performed By: #### P RO, ADIFF, BMP, ANEU, CBC, ABSGEL, ABOGEL, GFR #### [address] [address] BMPon 04-04-2023 BUN/Creatinine Ratio 22.4 ratio High 10.0-22.0 [facility] ([place]) Comment on above: Performed By: #### P RO, ADIFF, BMP, ANEU, CBC, ABSGEL, ABOGEL, GFR #### [place] [id number] Calcium [Mass/Vol] 9.4 mg/dL Normal 8.7-10.4 [facility] ([place]) Comment on above: Performed By: #### P RO, ADIFF, BMP, ANEU, CBC, ABSGEL, ABOGEL, GFR #### [place] [id number] Chloride [Moles/Vol] 110 mmol/L Normal 98-110 [facility] ([place]) Comment on above: Performed By: #### P RO, ADIFF, BMP, ANEU, CBC, ABSGEL, ABOGEL, GFR #### [place] [id number] CO2 [Moles/Vol] 27 mmol/L Normal 22-32 [facility] ([place] Comment on above: Performed By: #### P RO, ADIFF, BMP, ANEU, CBC, ABSGEL, ABOGEL, GFR #### [place] [id number] Creatinine [Mass/Vol] 0.58 mg/dL Low 0.60-1.40 [facility] ([place]) Comment on above: Performed By: #### P RO, ADIFF, BMP, ANEU, CBC, ABSGEL, ABOGEL, GFR #### [address] [address] Electrolyte Balance 6.0 mEq/L Normal 4.0-15.0 [facility] ([place] Comment on above: Performed By: #### P RO, ADIFF, BMP, ANEU, CBC, ABSGEL, ABOGEL, GFR #### [place] [id number] Glucose [Mass/Vol] 84 mg/dL Normal 82-115 [facility] ([place]) Comment on above: Performed By: #### P RO, ADIFF, BMP, ANEU, CBC, ABSGEL, ABOGEL, GFR #### [address] [address] Potassium [Moles/Vol] 3.9 mmol/L Normal 3.5-5.0 [facility] ([place]) Comment on above: Result Comment: Spec imen slightly hemolyzed. Performed By: #### P RO, ADIFF, BMP, ANEU, CBC, ABSGEL, ABOGEL, GFR #### [address] [address] Sodium [Moles/Vol] 143 mmol/L Normal 136-145 [facility] ([place]) Comment on above: Performed By: #### P RO, ADIFF, BMP, ANEU, CBC, ABSGEL, ABOGEL, GFR #### [place] [id number] Urea nitrogen [Mass/Vol] 13.0 mg/dL Normal 8.0-22.0 [facility] ([place] Comment on above: Performed By: #### P RO, ADIFF, BMP, ANEU, CBC, ABSGEL, ABOGEL, GFR #### [address] [address] CBCon 04-04-2023 Erythrocyte distribution width (RBC) [Ratio] 13.2 % Normal 11.5-15.5 [facility] ([place] Comment on above: Performed By: #### P RO, ADIFF, BMP, ANEU, CBC, ABSGEL, ABOGEL, GFR #### [place] [id number] Hematocrit (Bld) [Volume fraction] 38.9 % Low 40.0-52.0 [facility] ([place] Comment on above: Performed By: #### P RO, ADIFF, BMP, ANEU, CBC, ABSGEL, ABOGEL, GFR #### [address] [address] Hgb 13.8 G/dL Normal 13.0-17.5 [facility] ([place] Comment on above: Performed By: #### P RO, ADIFF, BMP, ANEU, CBC, ABSGEL, ABOGEL, GFR #### [place] [id number] MCH (RBC) [Entitic mass] 33.1 pg High 27.0-33.0 [facility] ([place] Comment on above: Performed By: #### P RO, ADIFF, BMP, ANEU, CBC, ABSGEL, ABOGEL, GFR #### [place] [id number] MCHC 35.4 G/dL Normal 32.0-36.0 [facility] ([place] Comment on above: Performed By: #### P RO, ADIFF, BMP, ANEU, CBC, ABSGEL, ABOGEL, GFR #### [place] [id number] MCV (RBC) [Entitic vol] 93.7 fL Normal 81.0-100.0 [facility] ([place] Comment on above: Performed By: #### P RO, ADIFF, BMP, ANEU, CBC, ABSGEL, ABOGEL, GFR #### [place] [address] Platelet 217 10 3/mcL Normal 150-450 [facility] ([place] Comment on above: Performed By: #### P RO, ADIFF, BMP, ANEU, CBC, ABSGEL, ABOGEL, GFR #### [place] [address] Platelet mean volume (Bld) [Entitic vol] 7.5 fL Normal 6.4-10.5 [facility] ([place] Comment on above: Performed By: #### P RO, ADIFF, BMP, ANEU, CBC, ABSGEL, ABOGEL, GFR #### [place] [address] RBC 4.16 10 6/mcL Low 4.50-6.00 [facility] ([place] Comment on above: Performed By: #### P RO, ADIFF, BMP, ANEU, CBC, ABSGEL, ABOGEL, GFR #### [place] [id number] WBC 6.7 10 3/mcL Normal 4.5-10.8 [facility] ([place] Comment on above: Performed By: #### P RO, ADIFF, BMP, ANEU, CBC, ABSGEL, ABOGEL, GFR #### [place] [address] LABORATORYOrdered By: Jorge Logan on 04-04-2023 ABO and Rh group Nom (Bld) Blood group A Rh(D) positive Invalid Interpretation Code BB Auto SS Blood group antibody screen Ql Negative ABSC (04/04/23 11:11 AM) Normal BB Auto SS LABORATORYOrdered By: SYSTEM SYSTEM on 04-04-2023 Basophils (Bld) [#/Vol] 0.0 103/mcL Normal 0.0 - 0.3 10^3/mcL Workflow SS Basophils/100 WBC (Bld) 0.5 % Normal 0.0 - 2.5 % AH Workflow SS Calcium [Mass/Vol] 9.4 mg/dL Normal 8.7 - 10. 4 mg/dL ADM SS Chloride [Moles/Vol] 110 mmol/L Normal 98 - 11 0 mEq/L ADM SS CO2 [Moles/Vol] 27 mmol/L Normal 22 - 32 mEq/L ADM SS Creatinine [Mass/Vol] 0.58 mg/dL Low 0.60 - 1.40 mg/dL ADM SS Electrolyte Balance 6.0 mEq/L Normal 4.0 - 15 .0 mEq/L ADM SS Eosinophils (Bld) [#/Vol] 0.1 103/mcL Normal 0.0 - 0.7 10^3/mcL AH Workflow SS Eosinophils/100 WBC (Bld) 1.7 % Normal 0.0 - 6.0 % Workflow SS Erythrocyte distribution width (RBC) [Ratio] 13.2 % Normal 11.5 - 15.5 % Workflow SS GFR/1.73 sq M.predicted among blacks MDRD (S/P/Bld) [Vol rate/Area] ml/min/1.73sqm Invalid Interpretation Code Chemistry S Comment on above: Interpretive Data: GFR Population mean for , Non- Americans Ages 20-29 = 116 mL/min/1.73 sq.m. Ages 30-39 = 107 mL/min/1.73 sq.m. Ages 40-49 = 99 mL/min/1.73 sq.m. Ages 50-59 = 93 mL/min/1.73 sq.m. Ages 60-69 = 85 mL/min/1.73 sq.m. Ages 70+ = 75 mL/min/1.73 sq.m. Chronic Kidney Disease: Less than 60 mL/min/1.73 square meters End Stage Renal Disease: Less than 15 mL/min/1.73 square meters GFR/1.73 sq M.predicted among non-blacks MDRD (S/P/Bld) [Vol rate/Area] ml/min/1.73sqm Invalid Interpretation Code Chemistry S Comment on above: Interpretive Data: GFR Population mean for , Non- Americans Ages 20-29 = 116 mL/min/1.73 sq.m. Ages 30-39 = 107 mL/min/1.73 sq.m. Ages 40-49 = 99 mL/min/1.73 sq.m. Ages 50-59 = 93 mL/min/1.73 sq.m. Ages 60-69 = 85 mL/min/1.73 sq.m. Ages 70+ = 75 mL/min/1.73 sq.m. Chronic Kidney Disease: Less than 60 mL/min/1.73 square meters End Stage Renal Disease: Less than 15 mL/min/1.73 square meters Glucose [Mass/Vol] 84 mg/dL Normal 82 - 115 mg/dL ADM SS Hematocrit (Bld) [Volume fraction] 38.9 % Low 40.0 - 52.0 % Workflow SS Hemoglobin (Bld) [Mass/Vol] 13.8 G/dL Normal 13.0 - 17.5 G/dL AH Workflow SS Lymphocytes (Bld) [#/Vol] 1.7 103/mcL Normal 0.9 - 4.3 10^3/mcL Workflow SS Lymphocytes/100 WBC (Bld) 25.2 % Normal 20.0 - 40.0 % AH Workflow SS MCH (RBC) [Entitic mass] 33.1 pg High 27.0 - 33.0 pg AH Workflow SS MCHC 35.4 G/dL Normal 32.0 - 36.0 G/dL Workflow SS MCV (RBC) [Entitic vol] 93.7 fL Normal 81.0 - 100.0 fL Workflow SS Monocytes (Bld) [#/Vol] 0.5 103/mcL Normal 0.1 - 1.4 10^3/mcL Workflow SS Monocytes/100 WBC (Bld) 7.3 % Normal 2.0 - 13.0 % AH Workflow SS Neutrophils (Bld) [#/Vol] 4.4 103/mcL Normal 2.3 - 8.1 10^3/mcL AH Workflow SS Neutrophils/100 WBC (Bld) 65.3 % Normal 50.0 - 75.0 % Workflow SS Platelet mean volume (Bld) [Entitic vol] 7.5 fL Normal 6.4 - 10.5 fL Workflow SS Platelets (Bld) [#/Vol] 217 103/mcL Normal 150 - 450 10^3/mcL Workflow SS Potassium [Moles/Vol] 3.9 mmol/L Normal 3.5 - 5.0 mEq/L ADM SS Comment on above: Result Comment: Spec imen slightly hemolyzed. RBC (Bld) [#/Vol] 4.16 106/mcL Low 4.50 - 6.0 0 10^6/mcL Workflow SS Sodium [Moles/Vol] 143 mmol/L Normal 136 - 145 mEq/L ADM SS Urea nitrogen [Mass/Vol] 13.0 mg/dL Normal 8.0 - 22.0 mg/dL ADM SS Urea nitrogen/Creatinine [Mass ratio] 22.4 ratio High 10.0 - 22.0 ratio ADM SS WBC (Bld) [#/Vol] 6.7 103/mcL Normal 4.5 - 10.8 10^3/mcL Workflow SS LABORATORYOrdered By: Britney Sifuentes on 04-04-2023 PT Coag (PPP) [Time] 12.6 s Normal 9.0 - 1 4.2 seconds [facility] Comment on above: Interpretive Data: E ffective 08/25/07, Protime results may be affected by some antibiotics (i.e. Ciprofloxacin, Azithromycin, Bactrim) which may potentiate the action of oral anticoagulants, with further increases in Protime/INR. PT International Ratio 1.1 ratio Invalid Interpretation Code [facility] Comment on above: Interpretive Data: [place] [employer] [employer] (CHEST, 1991, 102:[id number]) recommended therapeutic range for oral anticoagulant therapy is: LOW RISK: Prophylaxis of venous thrombosis INR: 2.0-3.0 Treatment of pulmonary embolism 2.0-3.0 Prevention of systemic embolism 2.0-3.0 HIGH RISK: Mechanical prosthetic valves 2.5-3.5 PROon 04-04-2023 INR Coag (PPP) [Relative time] 1.1 {INR} Normal [facility] ([place]) Comment on above: Result Comment: [employer] (CHEST, 1991, [id number]) recommended therapeutic range for oral anticoagulant therapy is: LOW RISK: Prophylaxis of venous thrombosis INR: 2.0-3.0 Treatment of pulmonary embolism 2.0-3.0 Prevention of systemic embolism 2.0-3.0 HIGH RISK: Mechanical prosthetic valves 2.5-3.5 Performed By: #### P RO, ADIFF, BMP, ANEU, CBC, ABSGEL, ABOGEL, GFR #### [address] [id number] PT Coag (PPP) [Time] 12.6 s Normal 9.0-14.2 [facility] ([place]) Comment on above: Result Comment: Effe ctive 08/25/07, Protime results may be affected by some antibiotics (i.e. Ciprofloxacin, Azithromycin, Bactrim) which may potentiate the action of oral anticoagulants, with further increases in Protime/INR. Performed By: #### P RO, ADIFF, BMP, ANEU, CBC, ABSGEL, ABOGEL, GFR #### [address] [address] Basophil percentageOrdered B y: Zane Bowles on 01-20-2023 Chloride [Moles/Vol] 107 mmol/L 98-107 [facility] Glucose [Mass/Vol] 112 mg/dL 74-106 [facility] Comment on above: Fasting Glucose resu lt from 100 to 125 mg/dL suggests IMPAIRED HOMEOSTASIS per A.D.A. criteria. Potassium [Moles/Vol] 3.6 mmol/L 3.5-5.1 [facility] Sodium [Moles/Vol] 140 mmol/L 136-145 [facility] Laboratory - Chemistry and C hemistry - challengeOrdered By: Zane Bowles on 01-20-2023 CO2 [Moles/Vol] 26.0 mmol/L 21.0-32.0 [facility] Urea nitrogen/Creatinine [Mass ratio] 20.1 mg/mg 10-20 [facility] No Panel InformationOrdered By: Zane Bowles on 01-20-2023 Estimated GFR (MDRD) Amer 144 mL/min >60 [facility] Comment on above: GFR Calc Estimated GFR (MDRD) Non-Af Amer 119 mL/min >60 [facility] Comment on above: Non- GFR Calc Serum or plasma calcium xavier urement (mass/volume)Ordered By: Zane Bowles on 01-20-2023 Calcium [Mass/Vol] 8.7 mg/dL 8.5-10.1 [facility] Serum or plasma creatinine m easurement (mass/volume)Ordered By: Zane Bowles on 01-20-2023 Creatinine [Mass/Vol] 0.70 mg/dL 0.70-1.30 [facility] Comment on above: The validity of the calculated GFR & GFRAA in patients over 70 years has not been determined. Clinical correlation is essential. Serum or plasma urea nitroge n measurement (mass/volume)Ordered By: Zane Bowles on 01-20-2023 Urea nitrogen [Mass/Vol] 14 mg/dL 7-18 [facility] Thin prep Papanicolaou smear with manual screeningOrdered By: Zaneabhay Bowles on 01-20-2023 Thin prep Papanicolaou smear with manual screening 7 5-15 [facility] Basophil percentageOrdered B y: Neil Damian on 12-16-2022 Chloride [Moles/Vol] 107 mmol/L 98-107 [facility] Glucose [Mass/Vol] 87 mg/dL 74-106 [facility] Potassium [Moles/Vol] 3.8 mmol/L 3.5-5.1 [facility] Sodium [Moles/Vol] 140 mmol/L 136-145 [facility] WBC (Bld) [#/Vol] 8.1 10*3/uL 4.4-11.0 [facility] Blood erythrocytes count (nu mber/volume)Ordered By: Neil Damian on 12-16-2022 RBC (Bld) [#/Vol] 4.39 10*6/uL 4.6-6.2 [facility] Blood hemoglobin measurement (mass/volume)Ordered By: Neil Damian on 12-16-2022 Hemoglobin (Bld) [Mass/Vol] 14.0 g/dL 13.0-16.5 [facility] Blood platelet mean volumeOr dered By: Neil Damian on 12-16-2022 Platelet mean volume (Bld) [Entitic vol] 10.0 fL 6.2-12.0 [facility] Determination of erythrocyte mean corpuscular volume (MCV)Ordered By: Neil Damian on 12-16-2022 MCV (RBC) [Entitic vol] 92.9 fL 80-94 [facility] Hematocrit Auto (Bld) [Volum e fraction]Ordered By: Neil Damian on 12-16-2022 Hematocrit (Bld) [Volume fraction] 40.8 % 40-54 [facility] Laboratory - Chemistry and C hemistry - challengeOrdered By: Neil Damian on 12-16-2022 CO2 [Moles/Vol] 27.0 mmol/L 21.0-32.0 [facility] Magnesium [Mass/Vol] 2.3 mg/dL 1.6-2.6 [facility] Urea nitrogen/Creatinine [Mass ratio] 23.5 mg/mg 10-20 [facility] Laboratory - Hematology and Cell countsOrdered By: Neil Damian on 12-16-2022 Erythrocyte distribution width (RBC) [Entitic vol] 43.8 fL 35.1-43.9 [facility] Erythrocyte distribution width (RBC) [Ratio] 12.7 % 11.6-14.6 [facility] MCH (RBC) [Entitic mass] 31.9 pg 27.0-32.0 [facility] MCHC Auto (RBC) [Mass/Vol]Or dered By: Neil Damian on 12-16-2022 MCHC (RBC) [Mass/Vol] 34.3 g/dL 32-36 [facility] No Panel InformationOrdered By: Neil Damian on 12-16-2022 Estimated GFR (MDRD) Amer 159 mL/min >60 [facility] Comment on above: GFR Calc Estimated GFR (MDRD) Non-Af Amer 131 mL/min >60 [facility] Comment on above: Non- GFR Calc Thyroid Stimulating Hormone (TSH) 2.24 uIU/mL 0.358-3.74 [facility] Platelets bldOrdered By: Isael Damian on 12-16-2022 Platelets (Bld) [#/Vol] 221 10*3/uL 150-450 [facility] Serum or plasma calcium xavier urement (mass/volume)Ordered By: Neil Damian on 12-16-2022 Calcium [Mass/Vol] 9.2 mg/dL 8.5-10.1 [facility] Serum or plasma creatinine m easurement (mass/volume)Ordered By: Neil Damian on 12-16-2022 Creatinine [Mass/Vol] 0.64 mg/dL 0.70-1.30 [facility] Comment on above: The validity of the calculated GFR & GFRAA in patients over 70 years has not been determined. Clinical correlation is essential. Serum or plasma urea nitroge n measurement (mass/volume)Ordered By: Neil Damian on 12-16-2022 Urea nitrogen [Mass/Vol] 15 mg/dL 7-18 [facility] Thin prep Papanicolaou smear with manual screeningOrdered By: Neil Damian on 12-16-2022 Thin prep Papanicolaou smear with manual screening 6 5-15 [facility] Basophil percentageOrdered B y: Dr. Damian on 07-15-2022 Chloride [Moles/Vol] 111 mmol/L 98-107 [facility] Cholesterol [Mass/Vol] 156 mg/dL <200 [facility] Comment on above: <200 mg/dL Desirable 200-240 mg/dL Borderline >240 mg/dL High Risk Glucose [Mass/Vol] 100 mg/dL 74-106 [facility] Comment on above: Fasting Glucose resu lt from 100 to 125 mg/dL suggests IMPAIRED HOMEOSTASIS per A.D.A. criteria. Potassium [Moles/Vol] 4.2 mmol/L 3.5-5.1 [facility] Sodium [Moles/Vol] 141 mmol/L 136-145 [facility] Triglyceride [Mass/Vol] 76 mg/dL <199 [facility] Comment on above: The drugs N-Acetylcy steine and Metamizole may falsely depress this assay.Serum Triglycerides Reference Interval Normal <150 mg/dL Borderline high 150 - 199 mg/dL High 200 - 499 mg/dL Very High > or = 500 mg/dL Laboratory - Chemistry and C hemistry - challengeOrdered By: Dr. Damian on 07-15-2022 CO2 [Moles/Vol] 24.0 mmol/L 21.0-32.0 [facility] Urea nitrogen/Creatinine [Mass ratio] 19.4 mg/mg 10-20 [facility] No Panel InformationOrdered By: Dr. Damian on 07-15-2022 Estimated GFR (MDRD) Amer 151 mL/min >60 [facility] Comment on above: GFR Calc Estimated GFR (MDRD) Non-Af Amer 124 mL/min >60 [facility] Comment on above: Non- GFR Calc Prostate Specific Antigen Screen 0.69 ng/mL 0.00-4.00 [facility] Comment on above: This test was perfor med using the TPSA assay method for the[employer] chemistry system. Values obtained with differentassay methods cannot be used interchangably.When changing PSA assays in the course of monitoring apatient, additional sequential testing should be carriedout to confirm baseline values. Serum or plasma calcium xavier urement (mass/volume)Ordered By: Dr. Damian on 07-15-2022 Calcium [Mass/Vol] 9.0 mg/dL 8.5-10.1 [facility] Serum or plasma cholesterol in HDL measurement (mass/volume)Ordered By: Dr. Damian on 07-15-2022 Cholesterol in HDL [Mass/Vol] 50 mg/dL >40 [facility] Comment on above: The drugs N-Acetylcy steine and Metamizole may falsely depress this assay. Reference Range HDL <40 mg/dL Low HDL Cholesterol HDL >or= 60 mg/dL High HDL Cholesterol Serum or plasma cholesterol in VLDL measurement (mass/volume)Ordered By: Dr. Damian on 07-15-2022 Cholesterol in VLDL [Mass/Vol] 15 mg/dL 5-40 [facility] Serum or plasma creatinine m easurement (mass/volume)Ordered By: Dr. Damian on 07-15-2022 Creatinine [Mass/Vol] 0.67 mg/dL 0.70-1.30 [facility] Comment on above: The validity of the calculated GFR & GFRAA in patients over 70 years has not been determined. Clinical correlation is essential. Serum or plasma low density lipoprotein (LDL) cholesterol measurement (mass/volume)Ordered By: Dr. Damian on 07-15-2022 Cholesterol in LDL [Mass/Vol] 91 mg/dL 0-130 [facility] Serum or plasma urea nitroge n measurement (mass/volume)Ordered By: Dr. Damian on 07-15-2022 Urea nitrogen [Mass/Vol] 13 mg/dL 7-18 [facility] Thin prep Papanicolaou smear with manual screeningOrdered By: Dr. Damian on 07-15-2022 Thin prep Papanicolaou smear with manual screening 6 5-15 [facility] Basophil percentageon 2021 Bilirubin [Mass/Vol] 0.50 mg/dL 0.20-1.00 [facility] Work Phone: Comment on above: For patients on eltr ombopag therapy, use of Dimension Hartman TBIL is not recommended. Chloride [Moles/Vol] 109 mmol/L 98-107 [facility] Work Phone: Cholesterol [Mass/Vol] 157 mg/dL <200 [facility] Work Phone: Comment on above: <200 mg/dL Desirable 200-240 mg/dL Borderline >240 mg/dL High Risk Glucose [Mass/Vol] 94 mg/dL 74-106 [facility] Work Phone: Potassium [Moles/Vol] 3.9 mmol/L 3.5-5.1 [facility] Work Phone: Protein [Mass/Vol] 6.9 g/dL 6.4-8.2 [facility] Work Phone: Sodium [Moles/Vol] 141 mmol/L 136-145 [facility] Work Phone: Triglyceride [Mass/Vol] 53 mg/dL <199 [facility] Work Phone: Comment on above: The drugs N-Acetylcy steine and Metamizole may falsely depress this assay.Serum Triglycerides Reference Interval Normal <150 mg/dL Borderline high 150 - 199 mg/dL High 200 - 499 mg/dL Very High > or = 500 mg/dL Laboratory - Chemistry and C hemistry - challengeon 06-15-2021 ALP [Catalytic activity/Vol] 73 U/L 45-117 [facility] Work Phone: ALT [Catalytic activity/Vol] 25 U/L 16-61 [facility] Work Phone: CO2 [Moles/Vol] 28.0 mmol/L 21.0-32.0 [facility] Work Phone: Globulin (S) [Mass/Vol] 3.4 g/dL 2.2-4.2 [facility] Work Phone: Urea nitrogen/Creatinine [Mass ratio] 23.1 mg/mg 10-20 [facility] Work Phone: No Panel Informationon 06-15 Estimated GFR (MDRD) Amer 146 mL/min >60 [facility] Work Phone: Comment on above: GFR Calc Estimated GFR (MDRD) Non-Af Amer 120 mL/min >60 [facility] Work Phone: Comment on above: Non- GFR Calc Prostate Specific Antigen Screen 0.50 ng/mL 0.00-4.00 [facility] Work Phone: Comment on above: This test was perfor med using the TPSA assay method [facility]. Values obtained with differentassay methods cannot be used interchangably.When changing PSA assays in the course of monitoring apatient, additional sequential testing should be carriedout to confirm baseline values. Serum or plasma albumin xavier urement (mass/volume)on 06-15-2021 Albumin [Mass/Vol] 3.5 g/dL 3.2-5.0 [facility] Work Phone: Serum or plasma albumin/glob ulin mass ratioon 06-15-2021 Albumin/Globulin [Mass ratio] 1.0 {ratio} 0.9-2.4 [facility] Work Phone: Serum or plasma calcium xavier urement (mass/volume)on 06-15-2021 Calcium [Mass/Vol] 8.2 mg/dL 8.5-10.1 [facility] Work Phone: Serum or plasma cholesterol in HDL measurement (mass/volume)on 06-15-2021 Cholesterol in HDL [Mass/Vol] 48 mg/dL >40 [facility] Work Phone: Comment on above: The drugs N-Acetylcy steine and Metamizole may falsely depress this assay. Reference Range HDL <40 mg/dL Low HDL Cholesterol HDL >or= 60 mg/dL High HDL Cholesterol Serum or plasma cholesterol in VLDL measurement (mass/volume)on 06-15-2021 Cholesterol in VLDL [Mass/Vol] 11 mg/dL 5-40 [facility] Work Phone: Serum or plasma creatinine m easurement (mass/volume)on 06-15-2021 Creatinine [Mass/Vol] 0.69 mg/dL 0.70-1.30 [facility] Work Phone: Comment on above: The validity of the calculated GFR & GFRAA in patients over 70 years has not been determined. Clinical correlation is essential. Serum or plasma low density lipoprotein (LDL) cholesterol measurement (mass/volume)on 06-15-2021 Cholesterol in LDL [Mass/Vol] 98 mg/dL 0-130 [facility] Work Phone: Serum or plasma urea nitroge n measurement (mass/volume)on 06-15-2021 Urea nitrogen [Mass/Vol] 16 mg/dL 7-18 [facility] Work Phone: Thin prep Papanicolaou smear with manual screeningon 06-15-2021 Thin prep Papanicolaou smear with manual screening 19 U/L 15-37 [facility] Work Phone: Thin prep Papanicolaou smear with manual screening 4 5-15 [facility] Work Phone: Lab Report: HCG BETA-SUBUNIT QUANT.on 08-06-2016 B-HCG 2 m[IU]/mL Invalid Interpretation Code 0-3 [facility] Work Phone: Lab Report: Estradiolon 07-12 estradiol, serum 32.0 pg/mL Invalid Interpretation Code [facility] Work Phone: Lab Report: Luteinizing Horm oneon 08-05-2016 luteinizing hormone, serum 26.6 m[iU]/mL Invalid Interpretation Code [facility] Work Phone: Lab Report: Testosterone, Se rum Totalon 08-05-2016 Testosterone 151 ng/dL Low [id number] [facility] Work Phone: Office Visit: left breast ma ss vs gynecomastiaon 07-23-2016 Alcoholism counseling (procedure) no Invalid Interpretation Code [facility] Work Phone: Dietary management education, guidance, and counseling (procedure) yes Invalid Interpretation Code [facility] Work Phone: Documentation of current medications (procedure) Done Invalid Interpretation Code [facility] Work Phone: Fall risk assessment No Invalid Interpretation Code [facility] Work Phone: Protein mass conc no [facility] Work Phone: Protein mass conc Done [facility] [employer] Work Phone: Tobacco smoking status AKIS Never Invalid Interpretation Code [facility] Work Phone: Tobacco smoking status [facility] Never smoker [facility] Work Phone: Tobacco use [facility] Never smoker Invalid Interpretation Code [facility] Work Phone: Office Visit: left breast ma ss vs gynecomastiaon 06-24-2014 Colonoscopy (procedure) Adenomatous Polyp Invalid Interpretation Code [facility] Work Phone: Protein mass conc Adenomatous Polyp [facility] Work Phone: Vital Signs Date Time Vital Sign Value Performing Clinician Faci lity 10-14-2024 13:06-0400 Body height 170.[address] Bossman Damian MD Work Phone: [facility] 10-14-2024 13:06-0400 Body mass index (BMI) [Ratio] 33 kg/m2 Dr. Bossman Damian MD Work Phone: [facility] 10-14-2024 13:06-0400 Body weight 95.[address] Bossman Damian MD Work Phone: [facility] 10-14-2024 13:06-0400 Diastolic blood pressure 58 mm[Hg] Dr. Bossman Damian MD Work Phone[facility] 10-14-2024 13:06-0400 Heart rate 67 /min Dr. Bossman Damian MD Work Phone: [facility] 10-14-2024 13:06-0400 Respiratory rate 18 /min Dr. Bossman Damian MD Work Phone: [facility] 10-14-2024 13:06-0400 Systolic blood pressure 135 mm[Hg] Dr. Bossman Damian MD Work Phone: [facility] 04-04-2023 20:04-0500 Diastolic Blood Pressure Non-Invasive 68 mm[Hg] SALLY VEE MD [address] [place] [id number] 04-04-2023 20:04-0500 Heart rate 85 /min SALLY VEE MD [address] [place] [id number] 04-04-2023 20:04-0500 Systolic Blood Pressure Non-Invasive 158 mm[Hg] SALLY VEE MD [address] [place] [id number] 04-04-2023 15:30-0500 Diastolic Blood Pressure Non-Invasive 64 mm[Hg] SALLY VEE MD [address] [place] [id number] 04-04-2023 15:30-0500 Heart rate 70 /min SALLY VEE MD [address] [place] [id number] 04-04-2023 15:30-0500 Systolic Blood Pressure Non-Invasive 147 mm[Hg] SALLY VEE MD [address] [place] [id number] 04-04-2023 15:15-0500 Diastolic Blood Pressure Non-Invasive 64 mm[Hg] SALLY VEE MD [address] [place] [id number] 04-04-2023 15:15-0500 Heart rate 68 /min SALLY VEE MD [address] [place] [id number] 04-04-2023 15:15-0500 Respiratory rate 16 /min SALLY VEE MD [address] [place] [id number] 04-04-2023 15:15-0500 Systolic Blood Pressure Non-Invasive 153 mm[Hg] SALLY VEE MD [address] [place] [id number] 04-04-2023 15:10-0500 Respiratory rate 15 /min SALLY VEE MD [address] [place] [id number] 04-04-2023 15:05-0500 Respiratory rate 18 /min SALLY VEE MD [address] [place] [id number] 04-04-2023 14:40-0500 Body temperature 97.16 [degF] SALLY VEE MD [address] [place] [id number] 04-04-2023 14:35-0500 Respiratory Rate - Anes 0 br/min SALLY VEE MD [address] [place] [id number] 04-04-2023 14:30-0500 Respiratory Rate - Anes 0 br/min SALLY VEE MD [address] [place] [id number] 04-04-2023 14:25-0500 Respiratory Rate - Anes 14 br/min SALLY VEE MD [address] [place] [id number] 04-04-2023 14:15-0500 Body temperature 97.52 [degF] SALLY VEE MD [address] [place] [id number] 04-04-2023 14:10-0500 Body temperature 97.52 [degF] SALLY VEE MD [address] [place] [id number] 04-04-2023 14:05-0500 Body temperature 97.48 [degF] SALLY VEE MD [address] 04-04-2023 10:48-0500 Body height 170.2 cm SALLY VEE MD [address] [place] [id number] 04-04-2023 10:48-0500 Body temperature 97.7 [degF] SALLY VEE MD [address] [place] [id number] 04-04-2023 10:48-0500 Body weight 32.73 kg/m2 SALLY VEE MD [address] [place] [id number] 04-04-2023 10:48-0500 Body weight 94.8 kg SALLY VEE MD [address] [place] [id number] 04-04-2023 10:48-0500 Heart rate 97 /min SALLY VEE MD [address] [place] [id number] 01-08-2023 09:26-0500 Body height 170.[address] Neil Damian Work Phone: [facility] 01-08-2023 09:26-0500 Body mass index (BMI) [Ratio] 33 kg/m2 Dr. Neil Damian Work Phone: [facility] 01-08-2023 09:26-0500 Body weight 95.[address] Neil Damian Work Phone: [facility] 01-08-2023 09:26-0500 Diastolic blood pressure 92 mm[Hg] Dr. Neil Damian Work Phone: [facility] 01-08-2023 09:26-0500 Heart rate 65 /min Dr. Neil Damian Work Phone: [facility] 01-08-2023 09:26-0500 Respiratory rate 16 /min Dr. Neil Damian Work Phone: [facility] 01-08-2023 09:26-0500 Systolic blood pressure 178 mm[Hg] Dr. Neil Damian Work Phone: [facility] 03-25-2022 09:30-0500 Diastolic Blood Pressure Non-Invasive [address] KACY BEARDEN MD [facility] 03-25-2022 09:30-0500 Heart rate 68 /min DR KACY BEARDEN MD [facility] 03-25-2022 09:30-0500 Respiratory rate 18 /min DR KACY BEARDEN MD [facility] 03-25-2022 09:30-0500 Systolic Blood Pressure Non-Invasive [address] KACY BEARDEN MD [facility] 03-25-2022 09:25-0500 Diastolic Blood Pressure Non-Invasive [address] KACY BEARDEN MD [facility] 03-25-2022 09:25-0500 Heart rate 99 /min DR KACY BEARDEN MD [facility] 03-25-2022 09:25-0500 Respiratory rate 18 /min DR KACY BEARDEN MD [facility] 03-25-2022 09:25-0500 Systolic Blood Pressure Non-Invasive [address] KACY BEARDEN MD [facility] 03-25-2022 09:20-0500 Diastolic Blood Pressure Non-Invasive [address] KACY BEARDEN MD [facility] 03-25-2022 09:20-0500 Heart rate 91 /min DR KACY BEARDEN MD [facility] 03-25-2022 09:20-0500 Respiratory rate 18 /min DR KACY BEARDEN MD [facility] 03-25-2022 09:20-0500 Systolic Blood Pressure Non-Invasive [address] KACY BEARDEN MD [facility] 03-25-2022 09:14-0500 Body temperature 96.8 [degF] DR KACY BEARDEN MD [facility] 03-25-2022 09:10-0500 Respiratory Rate - Anes 18 br/min DR KACY BEARDEN MD [facility] 03-25-2022 09:05-0500 Respiratory Rate - Anes 18 br/min DR KACY BEARDEN MD [facility] 03-25-2022 07:44-05[address] Pressure Cuff Size DR KACY BEARDEN MD [facility] 03-25-2022 07:44-[address] KACY BEARDEN MD [facility] 03-25-2022 07:44-[address] KACY BEARDEN MD [facility] 03-25-2022 07:44-0500 Body height 170.[address] KACY BEARDEN MD [facility] 03-25-2022 07:44-0500 Body temperature 97.52 [degF] DR KACY BEARDEN MD [facility] 03-25-2022 07:44-0500 Body weight 93.[address] KACY BEARDEN MD [facility] 03-25-2022 07:44-0500 Body weight 32.17 kg/m2 DR KACY BEARDEN MD [facility] 03-25-2022 07:44-0500 Heart rate 104 /min DR KACY BEARDEN MD [facility] 07-23-2016 15:04-0400 BMI (Body Mass Index) 28.22 kg/m2 Maggie Herman RN RN [facility] Work Phone: 07-23-2016 15:04-0400 Body Temperature 98.5 [degF] Maggie Herman RN RN [facility] Work Phone: 07-23-2016 15:04-0400 BP Diastolic 74 mm[Hg] Maggie Herman RN RN [facility] Work Phone: 07-23-2016 15:04-0400 BP Systolic 128 mm[Hg] Maggie Herman RN RN [facility] Work Phone: 07-23-2016 15:04-0400 Height 170.18 cm Maggie Herman RN RN [facility] Work Phone: 07-23-2016 15:04-0400 Pulse (Heart Rate) 65 /min Maggie Herman RN RN [facility] Work Phone: 07-23-2016 15:04-0400 Respiratory Rate 18 /min Maggie Herman RN RN [facility] Work Phone: 07-23-2016 15:04-0400 Weight 81.74 kg Maggie Herman RN RN [facility] Work Phone: Encounters Encounter Date Encounter Type Care Provider Facility Start: 10-14-2024 End: 10-14-[address] Zane Bowles MD -[facility] Work Phone: Start: 10-14-2024 End: 10-14-[address] Bossman Damian MD Work Phone: -[facility] Start: 11-17-2023 End: 11-17-2023 ambulatory Bossman Damian Facility[facility] Start: 05-21-2023 End: 05-21-2023 ambulatory [facility] Work Phone: Start: 05-21-2023 End: 05-21-2023 [facility] encounter [facility] Work Phone: Start: 04-04-2023 End: 04-04-2023 ambulatory SALLY VEE MD Facility:A Start: 04-04-2023 End: 04-04-2023 SAME DAY STAY SALLY VEE MD [facility] Start: 01-30-2023 End: 01-31-2023 ambulatory SALLY VEE MD Facility:B Start: 01-30-2023 End: 01-30-2023 Patient encounter procedure SALLY VEE MD [facility] Start: 01-20-2023 End: 01-20-[address] Neil Damian Work Phone: [facility] Work Phone: Start: 01-20-2023 End: 01-20-[address] Neil Damian Work Phone: [facility] Work Phone: Start: 01-08-2023 End: 01-08-[address] Neil Damian Work Phone: [facility] Work Phone: Start: 12-16-2022 End: 12-16-2022 ambulatory [facility] Work Phone: Start: 12-16-2022 End: 12-16-[address] [facility] Work Phone: Start: 07-15-2022 End: 07-15-2022 ambulatory [facility] Work Phone: Start: 07-15-2022 End: 07-15-2022 Patient encounter procedure [facility] Start: 03-25-2022 End: 03-25-[address] KACY BEARDEN MD [facility] Start: 08-10-2021 End: 08-10-2021 Patient encounter [facility] [place] Start: 06-15-2021 End: 06-15-2021 Patient encounter procedure [facility] [place] [facility] Procedures Date Procedure Procedure Detail Performing Clinician Start: 05-21-2023 X-ray of chest posteroanterior view Start: 01-30-2023 Echocardiography SALLY MORALES MD Comment on above: Summary: 1. Left ventricle: The cavity size is normal. Wall thickness is mildly increased. Systolic function is at the lower limits of normal. The estimated ejection fraction is 50-55%. Wall motion is normal; there are no regional wall motion abnormalities. Unable to assess diastolic function. 2. Aortic valve: There is trivial regurgitation. 3. Left atrium: The atrium is mildly dilated. 4. Right ventricle: The RV systolic pressure by Doppler is 24 mm Hg. 5. Right atrium: The atrium is dilated. The estimated right atrial pressure is 3 mm Hg. Start: 08-10-2021 Plain x-ray of wrist Start: 07-23-2016 End: 07-23-2016 Dietary management education, guidance, and counseling Maggie Herman RN RN Start: 02-10-1995 Destructive procedure F ZOEY VEE MD Comment on above: Cardiac RF Ablation Appendectomy DR KACY PARRA MD Blood clot in eye (finding) DR KACY BEARDEN MD Comment on above: EVACUATION Cardioversion DR KACY THOMPSON MD Cataract (disorder) DR KEMAR BEARDEN MD Hernia of abdominal cavity (disorder) DR KACY BEARDEN MD Comment on above: INGUINAL REPAIR Plan of Treatment Date Care Activity Detail Author Start: 10-14-2024 Evaluation of diagnostic study [facility] Start: 01-08-2023 [facility] referral [facility] Work Phone: Start: 08-02-2016 End: 08-02-2016 Chorionic gonadotropin test BhCG; quantitative [facility] [employer] Work Phone: Start: 08-02-2016 End: 08-02-2016 Estradiol *ESTRA - Estradiol [facility] Work Phone: Start: 08-02-2016 End: 08-02-2016 Lutropin (LH) *LH Gonadotropin - LH [facility] [employer] Work Phone: Start: 08-02-2016 End: 08-02-2016 Testosterone *BALJINDER Testosterone Total [facility] Work Phone: Start: 07-31-2016 End: 07-31-2016 Appointment Appointment [facility] Work Phone: Start: 07-23-2016 End: 07-23-2016 Appointment Appointment [facility] Work Phone: Start: 07-23-2016 End: 07-23-2016 Bx breast 1st Lesion US imag Bx Breast, device placement, US guidance [facility] Work Phone: Start: 07-23-2016 End: 07-25-2016 Follow Up after Imaging/labs Follow Up after Imaging/labs [facility] [employer] Work Phone: Patient referral [facility] Work Phone: Immunizations Immunization Date Immunization Notes Care Provider Crystal chung 04-06-2019 tetanus toxoid, redu duong diphtheria toxoid, and acellular pertussis vaccine, adsorbed DR KACY BEARDEN MD [facility] Payers Date Payer Category Payer Medicare [id number] 2023 Self-pay [id number] 2023 Unknown [id number] 2012 Unknown [id number] 1950 Unknown [id number] 1950 Unknown [id number] Unknown [id number] Unknown [id number] Social History Date Type Detail Facility Tobacco smoking stat us AKIS Unknown if ever smoked [facility] Work Phone: Start: 1950 Sex Assigned At Male [facility] Start: 10-07-2018 End: 01-08-2023 Tobacco smoking status Never smoked tobacco (finding) [facility] Comment on above: No smoking Sex Assigned At Sex [facility] Start: 01-08-2023 End: 01-08-2023 Tobacco smoking status AKIS Unknown if ever smoked [facility] Functional Status Date Assessment Result Facility 04-04-2023 Functional Status Awake [facility] 04-04-2023 Functional Status Room check performed [facility] 04-04-2023 Functional Status [facility] 03-25-2022 Functional Status Awake [facility] 03-25-2022 Functional Status Maintained [facility] Mental Status Date Assessment Result Facility 04-04-2023 Mental Status Orientation Oriented x 4 [facility] 04-04-2023 Mental Status [facility] 04-04-2023 Mental Status Orientation Asse ssment Oriented x 4 [facility] 03-25-2022 Mental Status Oriented x 4 [facility] 03-25-2022 Mental Status [facility] Clinical Notes 03-25-2022 to 04-04-2023 Note Date & Type Note Facility 04-04-2023 Summary of episod e note Discharge Instructions Thank you for allowing [facility] to assist you with your healthcare needs. The following is important discharge information regarding your hospital visit. Your Care Team BOSSMAN DAMIAN MD What to do next Scheduled Follow-Up Appointments Appointment Type When Where Contact InformationCV OV 06/10/2023 01:45 PM EDT [facility] Follow Up Appointments Follow Up with SALLY VEE MD When 06/10/2023 01:45 PM EDT Where: [address] [place] [address]- [phone] Allergies NKA Medications Please ask your primary doctor or pharmacist before taking any other medication not listed, including over the counter drugs, herbal medications, vitamins and or supplements as they may interact with your home medications. What How Much When Instructions Last Dose Unchanged apixaban (apixaban 5 mg oral tablet) 1 tab(s) by mouth Two (2) times a day Unchanged dilTIAZem (dilTIAZem 180 mg/ 24 hours oral tablet, extended release) 1 tab(s) by mouth Once a day Unchanged hydrochlorothiazide-losartan (hydrochlorothiazide-losartan 25-100 mg oral tablet) 1 tab(s) by mouth Once a day Unchanged tamsulosin (tamsulosin 0.4 mg oral capsule) 1 cap by mouth Once a day Please take this list to your next doctor s visit. Bring all medications you take, including over the counter medications, herbals and other supplements with you to your doctor s visit. Patients and families are reminded to discard old lists and to update any records with all medication providers or retail pharmacies. Education Materials ELECTROPHYSIOLOGY STUDY/ABLATION Discharge Instructions DIET INSTRUCTIONS Resume diet as prior to procedure ACTIVITIES Do not drive FOR 24 HOURS No heavy lifting GREATER THAN 10 POUNDS or pushing or straining FOR 4 DAYS BATHING/SHOWERING May tub bathe in 4 days Do not sit in hot tub, whirlpool, or swim for 4 days May shower tomorrow WOUND CARE You will go home with a dressing over your procedure site. Keep this dressing on for the next 24 hours and then remove it leaving the site open to air. Some degree of bruising and tenderness is normal around the procedure site. It will take a while for any bruising to completely resolve. Keep your site clean and dry. You need to report the following to your eyelet punch operator: Any draining or oozing from the site Any swelling at the site Any increased pain or tenderness at the site Any numbness in your leg where the procedure was done Any sign of infection WATCH FOR SIGNS OF INFECTION: Elevated temperature above 100.5 Redness or swelling Increased pain Foul odor or drainage. If you have any questions, please call your doctor at the number listed on your follow up instructions. Follow all instructions given to you by your physician. Document Released: 01/27/2006 Document Revised: 01/13/2013 Document Reviewed: 01/28/2014 ExitCare Patient Information 2015 [employer]. This information is not intended to replace advice given to you by your health care provider. Make sure you discuss any questions you have with your health care provider. General Anesthesia, Adult, Care After This sheet gives you information about how to care for yourself after your procedure. Your health care provider may also give you more specific instructions. If you have problems or questions, contact your health care provider. What can I expect after the procedure? After the procedure, the following side effects are common: Pain or discomfort at the IV site. Nausea. Vomiting. Sore throat. Trouble concentrating. Feeling cold or chills. Weak or tired. Sleepiness and fatigue. Soreness and body aches. These side effects can affect parts of the body that were not involved in surgery. Follow these instructions at home: For at least 24 hours after the procedure: Have a responsible adult stay with you. It is important to have someone help care for you until you are awake and alert. Rest as needed. Do not: ? Participate in activities in which you could fall or become injured. ? Drive. ? Use heavy machinery. ? Drink alcohol. ? Take sleeping pills or medicines that cause drowsiness. ? Make important decisions or sign legal documents. ? Take care of children on your own. Eating and drinking Follow any instructions from your health care provider about eating or drinking restrictions. When you feel hungry, start by eating small amounts of foods that are soft and easy to digest (bland), such as toast. Gradually return to your regular diet. Drink enough fluid to keep your urine pale yellow. If you vomit, rehydrate by drinking water, juice, or clear broth. General instructions If you have sleep apnea, surgery and certain medicines can increase your risk for breathing problems. Follow instructions from your health care provider about wearing your sleep device: ? Anytime you are sleeping, including during daytime naps. ? While taking prescription pain medicines, sleeping medicines, or medicines that make you drowsy. Return to your normal activities as told by your health care provider. Ask your health care provider what activities are safe for you. Take ouhe-dcv-[id number] and prescription medicines only as told by your health care provider. If you smoke, do not smoke without supervision. Keep all follow-up visits as told by your health care provider. This is important. Contact a health care provider if: You have nausea or vomiting that does not get better with medicine. You cannot eat or drink without vomiting. You have pain that does not get better with medicine. You are unable to pass urine. You develop a skin rash. You have a fever. You have redness around your IV site that gets worse. Get help right away if: You have difficulty breathing. You have chest pain. You have blood in your urine or stool, or you vomit blood. Summary After the procedure, it is common to have a sore throat or nausea. It is also common to feel tired. Have a responsible adult stay with you for the first 24 hours after general anesthesia. It is important to have someone help care for you until you are awake and alert. When you feel hungry, start by eating small amounts of foods that are soft and easy to digest (bland), such as toast. Gradually return to your regular diet. Drink enough fluid to keep your urine pale yellow. Return to your normal activities as told by your health care provider. Ask your health care provider what activities are safe for you. This information is not intended to replace advice given to you by your health care provider. Make sure you discuss any questions you have with your health care provider. Document Released: 05/05/2001 Document Revised: 01/30/2018 Document Reviewed: 09/12/2017 [employer] Patient Education 2020 [employer] Additional Information VACCINATE! IT SAVES LIVES! Members of the community who have not yet received the COVID-19 vaccine and would like to receive it can visit one of [facility] vaccine clinics. There are many vaccine clinic locations within the [facility]. For locations and available times, please visit [email or web address].coronavirus.o hio.gov/. It is important to note that some COVID mobile vaccine clinics are held outdoors and may be canceled in rainy or stormy conditions. To learn more about pediatric vaccinations (ages 5-11), we invite you to visit the [facility] webpage. [email or web address].org/p [email or web address] To learn more about the COVID-19 vaccine, we invite you to visit the CDC website for a list of frequently asked questions.https://www.cdc.gov/co ronavirus/2019-ncov/vaccines/faq .html [facility] Patient Portal Access Instructions: Stay connected with your healthcare team and access your personal medical information anytime with the [facility] Patient Portal. Please follow the directions below to create your [facility] account: 1.Access the email account you provided upon registration to the hospital/physician office.2.Look for an invitation email from [facility].3.Open the email and access the invitation link: Accept Invitation to [facility].4.Fill in the required rivera to create your account. To access your account, visit [employer]. Click the blue button labeled "Access Patient Portal" and then log in with the username and password that you created in the steps above. You will be able to view your test results, lab results, a summary of your visits, upcoming appointments and more. There is also a convenient messaging option where you can send secure messages to your provider. In addition, you will have the ability to download any documents or summaries to your computer and/or send the information securely to a physician. Remember that your healthcare information is confidential, so carefully consider who you will allow to register on the [facility] Patient Portal for access to your information. You can also access the [facility] Patient Portal on the [facility] ty. Simply click on "Patient Portal" and then log into your account. If you would like to receive a full copy of your medical records, please contact the [facility] Medical Records Department by calling [phone], Friday through Friday between 8 a.m. and 4:30 p.m. HOW TO SAFELY DISPOSE OF PRESCRIPTION MEDICATIONS Please use one of the following methods to safely dispose of your unused medications. 1.Use a drug disposal kit: the drug disposal pouch allows you to safely discard your old and unused drugs. Ask your nurse to give you one when you are discharged.2.Visit a local take-back location: Many local pharmacies and police departments have programs that collect old and unwanted prescription drugs. Call your local pharmacy or go to http://Genomind.[employer]/8A9Bt7v to find one close to you.3.Make use of household items: Use cat litter or old coffee grounds to dispose medications if other options are not available. Mix your drugs with these household products, seal them in an airtight container and throw it into the garbage. Call [facility]: [phone] to be sure your drugs can be disposed of in this way. Some medicines may require a different approach.4.Never flush your medications down the toilet. IF YOU HAVE BEEN PRESCRIBED AN OPIOID FOR PAIN If you have been prescribed an opioid (such as hydrocodone, oxycodone or morphine), it is critical to understand the possible side effects and risks of opioid pain medications. Even when taken as directed, opioids can have several side effects including: Tolerance, meaning you might need to take more of a medication for the same pain relief. Nausea, vomiting and/or constipation. Sleepiness, dizziness, dry mouth, confusion, depression or itching. Physical dependence, meaning you have withdrawal symptoms when a medication is stopped, can develop within a few days. KNOW YOUR RESPONSIBILITIES It is important to know exactly how much and how often to take the opioid pain medications you are prescribed. Never take opioids in higher amounts or more often than prescribed. Do not combine opioids with alcohol or other drugs that cause drowsiness, such as benzodiazepines, also known as benzos, including diazepam and alprazolam, muscle relaxants or sleep aids. Never sell or share prescription opioids. This is illegal. Store opioids in a secure place and out of reach of others (including children, family, friends and visitors). The last page of this document has been signed and retained as a CHART COPY. Signatures Patient Education Materials 3-- EP Study/Ablation (11/2017) (CUSTOM) General Anesthesia, Adult, Care After Medication Leaflets My discharge plan and instructions have been reviewed and explained to me and IGREGORIA PAUL E understand my current condition and have read and understand these discharge instructions. I have received a written copy of the plan/instructions. If I have questions, I am aware that I should contact my doctor. 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: Date/Time: Relationship to Patient: Witness Name/Signature: Date/Time: [facility] 04-04-2023 Hospital Discharg e instructions Patient Education 04/04/2023 16:41:50 3-- EP Study/Ablation (11/2017) (CUSTOM) ELECTROPHYSIOLOGY STUDY/ABLATION Discharge Instructions DIET INSTRUCTIONS Resume diet as prior to procedure ACTIVITIES Do not drive FOR 24 HOURS No heavy lifting GREATER THAN 10 POUNDS or pushing or straining FOR 4 DAYS BATHING/SHOWERING May tub bathe in 4 days Do not sit in hot tub, whirlpool, or swim for 4 days May shower tomorrow WOUND CARE You will go home with a dressing over your procedure site. Keep this dressing on for the next 24 hours and then remove it leaving the site open to air. Some degree of bruising and tenderness is normal around the procedure site. It will take a while for any bruising to completely resolve. Keep your site clean and dry. You need to report the following to your eyelet punch operator: Any draining or oozing from the site Any swelling at the site Any increased pain or tenderness at the site Any numbness in your leg where the procedure was done Any sign of infection WATCH FOR SIGNS OF INFECTION: Elevated temperature above 100.5 Redness or swelling Increased pain Foul odor or drainage. If you have any questions, please call your doctor at the number listed on your follow up instructions. Follow all instructions given to you by your physician. Document Released: 01/27/2006 Document Revised: 01/13/2013 Document Reviewed: 01/28/2014 ExitCare Patient Information 2014 [employer]. This information is not intended to replace advice given to you by your health care provider. Make sure you discuss any questions you have with your health care provider. 04/04/2023 16:38:19 General Anesthesia, Adult, Care After General Anesthesia, Adult, Care After This sheet gives you information about how to care for yourself after your procedure. Your health care provider may also give you more specific instructions. If you have problems or questions, contact your health care provider. What can I expect after the procedure? After the procedure, the following side effects are common: Pain or discomfort at the IV site. Nausea. Vomiting. Sore throat. Trouble concentrating. Feeling cold or chills. Weak or tired. Sleepiness and fatigue. Soreness and body aches. These side effects can affect parts of the body that were not involved in surgery. Follow these instructions at home: For at least 24 hours after the procedure: Have a responsible adult stay with you. It is important to have someone help care for you until you are awake and alert. Rest as needed. Do not: ?Participate in activities in which you could fall or become injured. ?Drive. ?Use heavy machinery. ?Drink alcohol. ?Take sleeping pills or medicines that cause drowsiness. ?Make important decisions or sign legal documents. ?Take care of children on your own. Eating and drinking Follow any instructions from your health care provider about eating or drinking restrictions. When you feel hungry, start by eating small amounts of foods that are soft and easy to digest (bland), such as toast. Gradually return to your regular diet. Drink enough fluid to keep your urine pale yellow. If you vomit, rehydrate by drinking water, juice, or clear broth. General instructions If you have sleep apnea, surgery and certain medicines can increase your risk for breathing problems. Follow instructions from your health care provider about wearing your sleep device: ?Anytime you are sleeping, including during daytime naps. ?While taking prescription pain medicines, sleeping medicines, or medicines that make you drowsy. Return to your normal activities as told by your health care provider. Ask your health care provider what activities are safe for you. Take [id number] and prescription medicines only as told by your health care provider. If you smoke, do not smoke without supervision. Keep all follow-up visits as told by your health care provider. This is important. Contact a health care provider if: You have nausea or vomiting that does not get better with medicine. You cannot eat or drink without vomiting. You have pain that does not get better with medicine. You are unable to pass urine. You develop a skin rash. You have a fever. You have redness around your IV site that gets worse. Get help right away if: You have difficulty breathing. You have chest pain. You have blood in your urine or stool, or you vomit blood. Summary After the procedure, it is common to have a sore throat or nausea. It is also common to feel tired. Have a responsible adult stay with you for the first 24 hours after general anesthesia. It is important to have someone help care for you until you are awake and alert. When you feel hungry, start by eating small amounts of foods that are soft and easy to digest (bland), such as toast. Gradually return to your regular diet. Drink enough fluid to keep your urine pale yellow. Return to your normal activities as told by your health care provider. Ask your health care provider what activities are safe for you. This information is not intended to replace advice given to you by your health care provider. Make sure you discuss any questions you have with your health care provider. Document Released: 05/05/2001 Document Revised: 01/30/2018 Document Reviewed: 09/12/2017 Watchwith Patient Education 2020 [email or web address]. Follow Up Care 01/22/2023 10:32:39 With:SALLY VEE MD Address: [address] [place] [address] [address] [facility] [place] [address]- [phone] When:06/10/2023 13:45:00 [facility] 04-04-2023 Discharge summary Hospital Course Patient underwent successful CTI ablation today with no complication and will be discharged home after 6 hours of bedrest. Allergies NKA Consults No qualifying data available. Objective Vitals and Measurements T: 36.2 C (Temporal Artery) TMIN: 36.2 C (Temporal Artery) TMAX: 36.75 C HR: 68(Monitored) RR: 16 BP: 153/64 SpO2: 94% HT: 170.2 cm WT: 94.8 kg BMI: 32.73 Weight Dosing Weight: 94.8 kg (04/04/23) Code Status No qualifying data available. Medications Unchanged apixaban (apixaban 5 mg oral tablet)1 tab(s) by mouth two (2) times a day. Refills: 3. dilTIAZem (dilTIAZem 180 mg/24 hours oral tablet, extended release)1 tab(s) by mouth once a day. hydrochlorothiazide-losartan (hydrochlorothiazide-losartan 25-100 mg oral tablet)1 tab(s) by mouth once a day. tamsulosin (tamsulosin 0.4 mg oral capsule)1 cap by mouth once a day. Follow Up Follow Up with SALLY VEE MD When 06/10/2023 01:45 PM EDT Where: [address] [facility] [place] [address]- [phone] Follow Up Appointments No qualifying data available. Follow Up Labs/Studies Discharge Labs No Follow-up Labs Discharge Studies No Follow-up Studies Discharge Diet No qualifying data available. Discharge Activity No qualifying data available. Readmission Risk/Palliative Score No qualifying data available. Digitally Signed by SALLY VEE MD on 04/04/2023 04:00 PM [facility] 04-04-2023 Note Exam Date Time Procedure Performing Provider Status 04/04/23 12:51 PM Ablation RF-CARTO - CV A [facility] (Verified) [facility] 02-23-2024 Anesthesiology Consult note Patient: DAMI KINNEY Age: 72 years Sex: Male : 1950 Associated Diagnoses: None Author: MICHAEL CANAS MD Preoperative Information Greater than 6 hours Anesthesia history Patient's history: negative. Family's history: negative. Review of Systems Ear/Nose/Mouth/Throat: Negative except as documented in history of present illness. Respiratory: Negative except as documented in history of present illness. Cardiovascular: Negative except as documented in history of present illness. Gastrointestinal: Negative except as documented in history of present illness. Genitourinary: Negative except as documented in history of present illness. Endocrine: Negative except as documented in history of present illness. Musculoskeletal: Negative except as documented in history of present illness. Integumentary: Negative except as documented in history of present illness. Neurologic: Negative except as documented in history of present illness. Health Status Allergies: Allergic Reactions (Selected) NKA, Allergies (1) ActiveReaction NKANone Documented Current medications: (Selected) Inpatient Medications Ordered NS 1,000 mL: 20 mL/hr, Intravenous Prescriptions Prescribed apixaban 5 mg oral tablet: 5 mg, 1 tab(s), Oral, BID, 180 tab(s), 3 Refill(s) Documented Medications Documented dilTIAZem 180 mg/24 hours oral tablet, extended release: 180 mg, 1 tab(s), Oral, qDay, 60 tab(s), 0Refill(s) hydrochlorothiazide-losartan 25-100 mg oral tablet: 1 tab(s), Oral, qDay, 30 tab(s), 0 Refill(s) tamsulosin 0.4 mg oral capsule: 0.4 mg, 1 cap(s), Oral, qDay, 30 cap(s), 0 Refill(s), Medications (1) Active Scheduled: (0) Continuous: (1) NS (0.9% nacl) 1,000 mL 1,000 mL, Intravenous, 20 mL/hr PRN: (0) Problem list: Medical Atrial flutter / SNOMED CT 3986009 / Confirmed, Active Problems (2) Atrial flutter High blood pressure Histories Past Medical History: No active or resolved past medical history items have been selected or recorded. Family History: Breast cancer Mother Hypertension Father Coronary artery disease Mother Procedure history: Echocardiogram ([id number]) on 01/30/2023 at 72 Years. Comments: 03/20/2023 9:34 Christina Doyle LPN Summary: 1. Left ventricle: The cavity size is normal. Wall thickness is mildly increased. Systolic functionis at the lower limits of normal. The estimated ejection fraction is 50-55%. Wall motion is normal; there are no regional wall motion abnormalities. Unable to assess diastolic function. 2. Aortic valve: There is trivial regurgitation. 3. Left atrium: The atrium is mildly dilated. 4. Right ventricle: The RV systolic pressure by Doppler is 24 mm Hg. 5. Right atrium: The atrium is dilated. The estimated right atrial pressure is 3 mm Hg. Ablation ([id number]) in 1995 at 45 Years. Comments: 01/21/2023 16:20 Norma Shannon LPN Cardiac RF Ablation Appendectomy ([id number]). Cardioversion ([id number]). Hernia ([id number]). Comments: 03/25/2022 7:40 YNES Pina INGUINAL REPAIR Cataract ([id number]). Blood clot in eye ([id number]). Comments: 03/25/2022 7:40 EST - YNES Bridges Social History Social & Psychosocial Habits Alcohol 04/04/2023 Use: Current Type: Beer Frequency: 1-2 times per week Substance Abuse 04/04/2023 Use: Never Tobacco 04/04/2023 Tobacco Use: Never (less than 100 in l Comment: No smoking - 01/22/2023 09:30 - Chula Sue LPN Home/Environment 04/04/2023 Domestic Concerns None Nutrition/Health 04/04/2023 Type of diet: Regular Sexual 04/04/2023 Self described orientation: Straight or heterosexual What is your current gender identity? (Check all that apply) Identifies as male . Physical Examination Vital Signs 04/04/2023 10:48 EST Temperature Oral 36.5 DegC Peripheral Pulse Rate 97 bpm Respiratory Rate 18 br/min Systolic Blood Pressure Non-Invasive 164 mmHg HI Diastolic Blood Pressure Non-Invasive 95 mmHg HI Vital Signs(last 24 hrs) Last Charted Temp Oral36.5 DegC (APR 04 10:48) SBPH 164mmHg (APR 04 10:48) DBPH 95mmHg (APR 04 10:48) BMI32.73 (APR 04 10:48) Measurements from flowsheet : Measurements 04/04/2023 10:48 EST Height 170.2 cm Admission Weight 94.8 kg [place] Body Weight 66.12 kg Body Mass Index 32.73 kg/m2 Pain assessment: Pain Assessment 04/04/2023 10:48 EST Primary Pain Intensity 0 Pain Scale Type 0-10 Pain scale . General: Alert and oriented. Airway: Normal temporomandibular joint mobility, Normal mouth, Normal throat, Normal neck range of motion, Trachea midline. Mallampati classification: II (soft palate, fauces, uvula visible). Head: Normocephalic. Dentition Evaluation: Own teeth, Missing teeth, Dentures, partial plate, Denies loose/chipped teeth. Neck: Supple. Respiratory: Lungs are clear to auscultation, Respirations are non-labored. Cardiovascular: Normal rate, Regular rhythm, No murmur. Heart Sounds: Normal. Gastrointestinal: Soft. Musculoskeletal Normal range of motion. Integumentary: Intact, Warm, Dry. Neurologic: Alert, Oriented. Review / Management Results review: Labs (Last four charted values) WBC 6.7(APR 04) Hgb 13.8(APR 04) Hct L 38.9(APR 04) Plt 217(APR 04) Na 143(APR 04) K 3.9(APR 04) CO2 27(APR 04) Cl 110(APR 04) Cr L 0.58(APR 04) BUN 13.0(APR 04) Glucose 84(APR 04) Ca 9.4(APR 04) PT 12.6(APR 04) INR 1.1(APR 04) , Lab results 04/04/2023 11:27 EST SN - Preop - CTm - Pt in HL SD Room 04/04/2023 10:20 SN - Preop - CTm - HL Pt Ready for Procedure 04/04/2023 11:27 04/04/2023 11:25 EST Electrocardiogram - EKG - CV Completed (In Progress) 04/04/2023 11:20 EST Antecubital Right 04/04/2023 20 gauge Peripheral IV Activity: Insert new site Peripheral IV Dressing Condition: Clean, Dry, Intact Peripheral IV Dressing Activity: Applied, Transparent dressing Peripheral IV Line Status/Patency: Flushes easily, 10ml normal saline flush, Good blood return Peripheral IV Site Condition: No complications Peripheral IV Equipment: PRN Adaptor Peripheral IV Number of Attempts: 1 Hand Right 04/04/2023 22 gauge Peripheral IV Activity: Insert new site Peripheral IV Dressing Condition: Clean, Dry, Intact Peripheral IV Dressing Activity: Applied, Transparent dressing Peripheral IV Line Status/Patency: Flushes easily, 10ml normal saline flush, Good blood return Peripheral IV Site Condition: No complications Peripheral IV Equipment: PRN Adaptor Peripheral IV Number of Attempts: 1 04/04/2023 11:18 EST IV Present Present Violence Risk Confused No Violence Risk Irritable No Violence Risk Boisterous No Violence Risk Verbal Threats No Violence Risk Physical Threats No Violence Risk Attacking Objects No Violence Risk Predictor Score 0 Violence Risk Intervention None Violence Risk Current Interventions None Consent Form Signed Yes Patient Dressed In Hospital gown, No undergarments Obstructive Sleep Apnea Assess Completed Yes Belongings At Bedside Cell phone, Dentures, partial plate, Glasses, Pants, Shirt, Shoes, Socks, Undergarments, Pt participated in reconciliation NPO Status Maintained Patient ID Band on and Verified Yes Blood Consent Signed Yes Last Fluid Intake 04/03/2023 18:00 Last Food Intake 04/03/2023 18:00 Last Void 04/04/2023 10:00 04/04/2023 11:11 EST WBC 6.7 10^3/mcL RBC 4.16 10^6/mcL LOW Hgb 13.8 G/dL Hct 38.9 % LOW MCV 93.7 fL MCH 33.1 pg HI MCHC 35.4 G/dL RDW 13.2 % Platelet 217 10^3/mcL MPV 7.5 fL Neutrophil % 65.3 % Lymphocyte % 25.2 % Monocyte % 7.3 % Eosinophil % 1.7 % Basophil % 0.5 % Neutrophil, Absolute 4.4 10^3/mcL Lymphocyte, Absolute 1.7 10^3/mcL Monocyte, Absolute 0.5 10^3/mcL Eosinophil, Absolute 0.1 10^3/mcL Basophil, Absolute 0.0 10^3/mcL Protime 12.6 seconds PT International Ratio 1.1 ratio NA Glucose Level 84 mg/dL Sodium Level 143 mEq/L Potassium Level 3.9 mEq/L Chloride 110 mEq/L CO2 27 mEq/L Electrolyte Balance 6.0 mEq/L BUN 13.0 mg/dL Creatinine Lvl (s) 0.58 mg/dL LOW BUN/Creatinine Ratio 22.4 ratio HI Calcium Lvl 9.4 mg/dL GFR Non- >60 ml/min/1.73sqm NA GFR >60 ml/min/1.73sqm NA ABO/Rh Interp A POS ABSC Interp (Gel) Negative ABSC Creatinine Clearance Calc 110.83 mL/min 04/04/2023 10:48 EST Designated Person #1 We May Share PHI Designated Person #1 We May Share PHI Designated Person #1 Relationship Spouse Designated Person #2 We May Share PHI Mona Privacy Restrictions Requested None Height 170.2 cm Admission Weight 94.8 kg [place] Body Weight 66.12 kg Body Mass Index 32.73 kg/m2 Temperature Oral 36.5 DegC Peripheral Pulse Rate 97 bpm Respiratory Rate 18 br/min Systolic Blood Pressure Non-Invasive 164 mmHg HI Diastolic Blood Pressure Non-Invasive 95 mmHg HI Primary Pain Intensity 0 Pain Scale Type 0-10 Pain scale Heart Rhythm Irregular Dorsalis Pedis Pulse, Left 2+ Normal Dorsalis Pedis Pulse, Right 2+ Normal Radial Pulse, Left 2+ Normal Radial Pulse, Right 2+ Normal Respirations Unlabored Respiratory Pattern Regular Breath Sounds Auscultated Anterior and posterior All Lobes Breath Sounds Clear Oxygen Therapy Room air Oxygen Saturation 96 % Abdomen Description Non-distended, Soft Abdomen Palpation Non-Tender Bowel Sounds All Quadrants Present Urinary Elimination Voiding, no difficulties Status N/A Skin Temperature Warm Skin Description Normal for ethnicity, Dry Skin Integrity Intact Mucous Membrane Color Robert Lee Neurological Symptoms Patient denies Extremity Movement Equal Characteristics of Speech Clear Level of Consciousness Alert MAGDALENA Yes Strength All Extremities Moderate Tone All Extremities Normal Sensation All Extremities Intact Affect/Behavior Appropriate, Calm, Cooperative Orientation Oriented x 4 Sensory Deficits None Sleep Apnea Snore Yes Sleep Apnea Tired Yes Sleep Apnea Obstruction No Sleep Apnea Pressure Yes Sleep Apnea BMI No Sleep Apnea Age Yes Sleep Apnea Neck No Sleep Apnea Gender Yes Sleep Apnea Score 5 HI Diagnosed With Sleep Apnea No Advanced Directives No - refuses information Infectious Disease Symptoms Patient states no symptoms Infectious Disease Recent Exposure No Alcohol and Drug Use No Employee of Institutional Living No Health Care Employee No History of Exposure to TB No History of Positive Chest X-Ray for TB No History of Positive TB Skin Test No Homeless No Known Immunosuppression No Recent Immigrant No Resident of Institutional Living No Bloody Sputum No Fatigue No Fever No Loss of Appetite No Night Sweats No Persistent Cough > 3 Weeks No Weight Loss No Orientation Assessment Oriented x 4 Individuals Taught Patient, Spouse Learning Readiness Willing to learn Barriers to Learning None evident Teaching Method Explanation Preferred Spoken Language Wallisian Preferred Written Language Wallisian Family/Caregiver Prefer Spoken Language Wallisian Family/Caregiver Prefer Written Language Wallisian Teaching Evaluation Verbalizes/Nonverbally indicates understanding Safety Brochure Information Reviewed Yes Juliocesar Hua Video Viewed Patient refused Information Given by Patient Patient's Current Physicians Patient's Current Physicians Discharge To, Anticipated Home independently Assistive Device None Positioning Repositions self Mobility Assistance Level Independent Activity Status ADL Resting Standard Safety ID band on, Call device within reach, Bed in low position, Wheels locked, Upper/Half-Length side-rails up, Phone within reach, personal items within reach, Visitor at bedside, Safety level maintained, Non-Slip footwear, Precautions maintained High Risk Safety Room check performed Demonstrates Correct Call Light Use Yes Prev Test Positive/Diagnosis w/COVID-19 No Current Quarantine/Isolated any Illness No Any Contact with Sick Animals/Birds No Traveled Anywhere in Last 30 Days No Lost Weight Unintentionally Recently No Eat Poorly Due to Decreased Appetite No Total MST Score 0 N/A Personal Devices, Patient Valuables Dentures, partial plate, Glasses Anesthesia/Transfusions Prior anesthesia Admission Note-Nursing Same Day Patient History . Assessment and Plan [place] [employer] Anesthesiologists (ASA) physical status classification: Class III. Anesthetic Preoperative Plan Premedication: intravenous. Anesthetic technique: General. Induction: intravenously. Maintenance airway: Oral endotracheal tube. Special techniques: Warming device. Special Monitoring. Postoperative pain management: Per surgeon. Risks discussed: nausea, vomiting, headache, sore throat, dental injury, hypotension, allergic reaction, serious complications. Informed consent: signed by patient. Beta Violeta: Beta Violeta Taken Within 24 Hrs: Yes. Digitally Signed by MICHAEL CANAS MD on 04/04/2023 12:43 PM [id number]* Exam Date Time Procedure Performing Provider Status 01/30/23 2:51 PM Echocardiogram, Adult ([facility]) Auth (Verified) [facility] 02-13-2023 Evaluation + Plan noteExtracted from: Title:Clinical Document Author:KACY BEARDEN Date:03/25/22 [place] ADMISSION HISTORY AN D PHYSICIAL CHIEF COMPLAINT: HISTORY OF PRESENT ILLNESS: REVIEW OF SYSTEMS: ACTIVE PROBLEMS: (1) High blood pressure ([id number]) MEDICATIONS: Active Inpt Meds: None Active PRN Meds: None One Time Meds: None Active IV Meds: Lactated Ringers Infusion 1,000 mL (LR 1,000 mL) Start: 03/25/22 7:38:00 EST, Rate: 50 mL/hr, 03/25/22 7:38:00 EST ALLERGIES: (1) NKA FAMILY HISTORY: SOCIAL HISTORY: PHYSICAL EXAM: VITALS: [id number](kg) 03/25 07:4436.4--[id number]/13 93.2 24 Hr Tmax: 36.4 at 03/25 07:44 36 Hr Tmax: 36.4 at 03/25 07:44 Vital Signs are the last 5 in the past 48 hours. Weights display the last 5 within 7 days. Initial Wt: 03/25 93.2 kg 205 lb Current Wt: 03/25 93.2 kg 205 lb GENERAL: HEENT: CARDIOVASCULAR: RESPIRATORY: ABDOMEN: EXREMETIES: NEUROLOGICAL: PSYCHIATRIC: LABS: No 36hr Lab Data DIAGNOSTICS: IMPRESSION: PLAN: History and Physical Update I have examined the patient; reviewed the H&P and there are no changes to the H&P unless noted below. History and Physical Update I have examined the patient; reviewed the H&P and there are no changes to the H&P unless noted below. [facility] 02-13-2023 Hospital Discharge instructions Patient Education 03/25/2022 09:17:12 Nausea and Vomiting, Adult, [id number] Nausea and Vomiting, Adult Nausea is feeling sick to your stomach or feeling that you are about to throw up (vomit). Vomiting is when food in your stomach is thrown up and out of the mouth. Throwing up can make you feel weak. It can also make you lose too much water in your body (get dehydrated). If you lose too much water in your body, you may: Feel tired. Feel thirsty. Have a dry mouth. Have cracked lips. Go pee (urinate) less often. Older adults and people with other diseases or a weak body defense system (immune system) are at higher risk for losing too much water in the body. If you feel sick to your stomach and you throw up, it is important to follow instructions from your doctor about how to take care of yourself. Follow these instructions at home: Watch your symptoms for any changes. Tell your doctor about them. Follow these instructions to carefor yourself at home. Eating and drinking Take an ORS (oral rehydration solution). This is a drink that is sold at pharmacies and stores. Drink clear fluids in small amounts as you are able, such as: ?Water. ?Ice chips. ?Fruit juice that has water added (diluted fruit juice). ?Low-calorie sports drinks. Eat bland, qvbc-[id number] foods in small amounts as you are able, such as: ?Bananas. ?Applesauce. ?Rice. ?Low-fat (lean) meats. ?[place]. ?Crackers. Avoid drinking fluids that have a lot of sugar or caffeine in them. This includes energy drinks, sports drinks, and soda. Avoid alcohol. Avoid spicy or fatty foods. General instructions Take pqfh-mle-mdfdmqv and prescription medicines only as told by your doctor. Drink enough fluid to keep your pee (urine) pale yellow. Wash your hands often with soap and water. If you cannot use soap and water, use hand automatic stacker. Make sure that all people in your home wash their hands well and often. Rest at home while you get better. Watch your condition for any changes. Take slow and deep breaths when you feel sick to your stomach. Keep all follow-up visits as told by your doctor. This is important. Contact a doctor if: Your symptoms get worse. You have new symptoms. You have a fever. You cannot drink fluids without throwing up. You feel sick to your stomach for more than 2 days. You feel light-headed or dizzy. You have a headache. You have muscle cramps. You have a rash. You have pain while peeing. Get help right away if: You have pain in your chest, neck, arm, or jaw. You feel very weak or you pass out (faint). You throw up again and again. You have throw up that is bright red or looks like black coffee grounds. You have bloody or black poop (stools) or poop that looks like tar. You have a very bad headache, a stiff neck, or both. You have very bad pain, cramping, or bloating in your belly (abdomen). You have trouble breathing. You are breathing very quickly. Your heart is beating very quickly. Your skin feels cold and clammy. You feel confused. You have signs of losing too much water in your body, such as: ?Dark pee, very little pee, or no pee. ?Cracked lips. ?Dry mouth. ?Sunken eyes. ?Sleepiness. ?Weakness. These symptoms may be an emergency. Do not wait to see if the symptoms will go away. Get medical help right away. Call your local emergency services (911 in the [place] Do not drive yourself to the hospital. Summary Nausea is feeling sick to your stomach or feeling that you are about to throw up (vomit). Vomiting is when food in your stomach is thrown up and out of the mouth. Follow instructions from your doctor about eating and drinking to keep from losing too much water in your body. Take ytih-vus-detrqdj and prescription medicines only as told by your doctor. Contact your doctor if your symptoms get worse or you have new symptoms. Keep all follow-up visits as told by your doctor. This is important. This information is not intended to replace advice given to you by your health care provider. Make sure you discuss any questions you have with your health care provider. Document Released: 07/15/2008 Document Revised: 05/21/2019 Document Reviewed: 07/07/2018 Watchwith Patient Education 2020 [email or web address]. 03/25/2022 09:17:12 Monitored Anesthesia Care, Care After Monitored Anesthesia Care, Care After These instructions provide you with information about caring for yourself after your procedure. Your health care provider may also give you more specific instructions. Your treatment has been plannedaccording to current medical practices, but problems sometimes occur. Call your health care provider if you have any problems or questions after your procedure. What can I expect after the procedure? After your procedure, you may: Feel sleepy for several hours. Feel clumsy and have poor balance for several hours. Feel forgetful about what happened after the procedure. Have poor judgment for several hours. Feel nauseous or vomit. Have a sore throat if you had a breathing tube during the procedure. Follow these instructions at home: For at least 24 hours after the procedure: Have a responsible adult stay with you. It is important to have someone help care for you until youare awake and alert. Rest as needed. Do not: ?Participate in activities in which you could fall or become injured. ?Drive. ?Use heavy machinery. ?Drink alcohol. ?Take sleeping pills or medicines that cause drowsiness. ?Make important decisions or sign legal documents. ?Take care of children on your own. Eating and drinking Follow the diet that is recommended by your health care provider. If you vomit, drink water, juice, or soup when you can drink without vomiting. Make sure you have little or no nausea before eating solid foods. General instructions Take vxnp-eqs-tumzsgo and prescription medicines only as told by your health care provider. If you have sleep apnea, surgery and certain medicines can increase your risk for breathing problems. Follow instructions from your health care provider about wearing your sleep device: ?Anytime you are sleeping, including during daytime naps. ?While taking prescription pain medicines, sleeping medicines, or medicines that make you drowsy. If you smoke, do not smoke without supervision. Keep all follow-up visits as told by your health care provider. This is important. Contact a health care provider if: You keep feeling nauseous or you keep vomiting. You feel light-headed. You develop a rash. You have a fever. Get help right away if: You have trouble breathing. Summary For several hours after your procedure, you may feel sleepy and have poor judgment. Have a responsible adult stay with you for at least 24 hours or until you are awake and alert. This information is not intended to replace advice given to you by your health care provider. Make sure you discuss any questions you have with your health care provider. Document Released: 05/19/2016 Document Revised: 04/27/2018 Document Reviewed: 05/19/2016 Watchwith Patient Education 2020 [email or web address]. 03/25/2022 09:17:04 Colon Polyps Colon Polyps Polyps are tissue growths inside the body. Polyps can grow in many places, including the large intestine (colon). A polyp may be a round bump or a mushroom-shaped growth. You could have one polyp or several. Most colon polyps are noncancerous (benign). However, some colon polyps can become cancerous over time. Finding and removing the polyps early can help prevent this. What are the causes? The exact cause of colon polyps is not known. What increases the risk? You are more likely to develop this condition if you: Have a family history of colon cancer or colon polyps. Are older than 50 or older than 45 if you are . Have inflammatory bowel disease, such as ulcerative colitis or Crohn's disease. Have certain hereditary conditions, such as: ?Familial adenomatous polyposis. ?Mendoza syndrome. ?Turcot syndrome. ?Peutz Jeghers syndrome. Are overweight. Smoke cigarettes. Do not get enough exercise. Drink too much alcohol. Eat a diet that is high in fat and red meat and low in fiber. Had childhood cancer that was treated with abdominal radiation. What are the signs or symptoms? Most polyps do not cause symptoms. If you have symptoms, they may include: Blood coming from your rectum when having a bowel movement. Blood in your stool. The stool may look dark red or black. Abdominal pain. A change in bowel habits, such as constipation or diarrhea. How is this diagnosed? This condition is diagnosed with a colonoscopy. This is a procedure in which a lighted, flexible scope is inserted into the anus and then passed into the colon to examine the area. Polyps are sometimes found when a colonoscopy is done as part of routine cancer screening tests. How is this treated? Treatment for this condition involves removing any polyps that are found. Most polyps can be removed during a colonoscopy. Those polyps will then be tested for cancer. Additional treatment may be needed depending on the results of testing. Follow these instructions at home: Lifestyle Maintain a healthy weight, or lose weight if recommended by your health care provider. Exercise every day or as told by your health care provider. Do not use any products that contain nicotine or tobacco, such as cigarettes and e-cigarettes. If you need help quitting, ask your health care provider. If you drink alcohol, limit how much you have: ?0 1 drink a day for women. ? 0 2 drinks a day for men. Be aware of how much alcohol is in your drink. In the [place] one drink equals one 12 oz bottle of beer (355 mL), one 5 oz glass of wine (148 mL), or one 1 oz shot of hard liquor (44 mL). Eating and drinking Eat foods that are high in fiber, such as fruits, vegetables, and whole grains. Eat foods that are high in calcium and vitamin D, such as milk, cheese, yogurt, eggs, liver, fish, and broccoli. Limit foods that are high in fat, such as fried foods and desserts. Limit the amount of red meat and processed meat you eat, such as hot dogs, sausage, esquivel, and lunch meats. General instructions Keep all follow-up visits as told by your health care provider. This is important. ?This includes having regularly scheduled colonoscopies. ?Talk to your health care provider about when you need a colonoscopy. Contact a health care provider if: You have new or worsening bleeding during a bowel movement. You have new or increased blood in your stool. You have a change in bowel habits. You lose weight for no known reason. Summary Polyps are tissue growths inside the body. Polyps can grow in many places, including the colon. Most colon polyps are noncancerous (benign), but some can become cancerous over time. This condition is diagnosed with a colonoscopy. Treatment for this condition involves removing any polyps that are found. Most polyps can be removed during a colonoscopy. This information is not intended to replace advice given to you by your health care provider. Make sure you discuss any questions you have with your health care provider. Document Released: 10/23/2004 Document Revised: 05/14/2018 Document Reviewed: 05/14/2018 Watchwith Patient Education 2020 [email or web address]. Follow Up Care 03/07/2022 07:49:35 With:KACY BEARDEN [facility] [address] [facility] [address] [place] [phone] Business (1) When: Unknown [facility] 02-13-2023 Summary of episode note Discharge Instructions Thank you for allowing [facility] to assist you with your healthcare needs. The following is importantdischarge information regarding your hospital visit. Your Care Team YNES HUBER, BOSSMAN BEARDEN Your Diagnosis COLON POLYPS What to do next Follow Up Appointments Follow Up with KACY BEARDEN When [facility] [address] [facility] [address] [place] [address]- [phone] Business (1) Allergies NKA Medications Please ask your primary doctor or pharmacist before taking any other medication not listed, including over the counter drugs, herbal medications, vitamins and or supplements as they may interact withyour home medications. What How Much When Instructions Last Dose Unchanged hydroCHLOROthiazide (hydroCHLOROthiazide 12.5 mg oral tablet) TAKE 1 TABLET BY MOUTH ONCE DAILY Unchanged losartan (losartan 50 mg oral tablet) TAKE 1 TABLET BY MOUTH ONCE DAILY Unchanged tamsulosin (tamsulosin 0.4 mg oral capsule) 1 cap by mouth Once a day Please take this list to your next doctor s visit. Bring all medications you take, including over the counter medications, herbals and other supplements with you to your doctor s visit. Patients and families are reminded to discard old lists and to update any records with all medication providers or retail pharmacies. Education Materials Nausea and Vomiting, Adult Nausea is feeling sick to your stomach or feeling that you are about to throw up (vomit). Vomiting is when food in your stomach is thrown up and out of the mouth. Throwing up can make you feel weak. It can also make you lose too much water in your body (get dehydrated). If you lose too much water in your body, you may: Feel tired. Feel thirsty. Have a dry mouth. Have cracked lips. Go pee (urinate) less often. Older adults and people with other diseases or a weak body defense system (immune system) are at higher risk for losing too much water in the body. If you feel sick to your stomach and you throw up, it is important to follow instructions from your doctor about how to take care of yourself. Follow these instructions at home: Watch your symptoms for any changes. Tell your doctor about them. Follow these instructions to carefor yourself at home. Eating and drinking Take an ORS (oral rehydration solution). This is a drink that is sold at pharmacies and stores. Drink clear fluids in small amounts as you are able, such as: ? Water. ? Ice chips. ? Fruit juice that has water added (diluted fruit juice). ? Low-calorie sports drinks. Eat bland, baso-cm-aejisg foods in small amounts as you are able, such as: ? Bananas. ? Applesauce. ? Rice. ? Low-fat (lean) meats. ? Navarro. ? Crackers. Avoid drinking fluids that have a lot of sugar or caffeine in them. This includes energy drinks, sports drinks, and soda. Avoid alcohol. Avoid spicy or fatty foods. General instructions Take kbsn-wrn-rtnijjf and prescription medicines only as told by your doctor. Drink enough fluid to keep your pee (urine) pale yellow. Wash your hands often with soap and water. If you cannot use soap and water, use hand automatic stacker. Make sure that all people in your home wash their hands well and often. Rest at home while you get better. Watch your condition for any changes. Take slow and deep breaths when you feel sick to your stomach. Keep all follow-up visits as told by your doctor. This is important. Contact a doctor if: Your symptoms get worse. You have new symptoms. You have a fever. You cannot drink fluids without throwing up. You feel sick to your stomach for more than 2 days. You feel light-headed or dizzy. You have a headache. You have muscle cramps. You have a rash. You have pain while peeing. Get help right away if: You have pain in your chest, neck, arm, or jaw. You feel very weak or you pass out (faint). You throw up again and again. You have throw up that is bright red or looks like black coffee grounds. You have bloody or black poop (stools) or poop that looks like tar. You have a very bad headache, a stiff neck, or both. You have very bad pain, cramping, or bloating in your belly (abdomen). You have trouble breathing. You are breathing very quickly. Your heart is beating very quickly. Your skin feels cold and clammy. You feel confused. You have signs of losing too much water in your body, such as: ? Dark pee, very little pee, or no pee. ? Cracked lips. ? Dry mouth. ? Sunken eyes. ? Sleepiness. ? Weakness. These symptoms may be an emergency. Do not wait to see if the symptoms will go away. Get medical help right away. Call your local emergency services (911 in the [place] Do not drive yourself to the hospital. Summary Nausea is feeling sick to your stomach or feeling that you are about to throw up (vomit). Vomiting is when food in your stomach is thrown up and out of the mouth. Follow instructions from your doctor about eating and drinking to keep from losing too much water in your body. Take qfcb-dqo-zodiwpo and prescription medicines only as told by your doctor. Contact your doctor if your symptoms get worse or you have new symptoms. Keep all follow-up visits as told by your doctor. This is important. This information is not intended to replace advice given to you by your health care provider. Make sure you discuss any questions you have with your health care provider. Document Released: 07/15/2008 Document Revised: 05/21/2019 Document Reviewed: 07/07/2018 Elsevier Patient Education 2020 [employer] Monitored Anesthesia Care, Care After These instructions provide you with information about caring for yourself after your procedure. Your health care provider may also give you more specific instructions. Your treatment has been plannedaccording to current medical practices, but problems sometimes occur. Call your health care provider if you have any problems or questions after your procedure. What can I expect after the procedure? After your procedure, you may: Feel sleepy for several hours. Feel clumsy and have poor balance for several hours. Feel forgetful about what happened after the procedure. Have poor judgment for several hours. Feel nauseous or vomit. Have a sore throat if you had a breathing tube during the procedure. Follow these instructions at home: For at least 24 hours after the procedure: Have a responsible adult stay with you. It is important to have someone help care for you until youare awake and alert. Rest as needed. Do not: ? Participate in activities in which you could fall or become injured. ? Drive. ? Use heavy machinery. ? Drink alcohol. ? Take sleeping pills or medicines that cause drowsiness. ? Make important decisions or sign legal documents. ? Take care of children on your own. Eating and drinking Follow the diet that is recommended by your health care provider. If you vomit, drink water, juice, or soup when you can drink without vomiting. Make sure you have little or no nausea before eating solid foods. General instructions Take auer-hrh-jezkkeg and prescription medicines only as told by your health care provider. If you have sleep apnea, surgery and certain medicines can increase your risk for breathing problems. Follow instructions from your health care provider about wearing your sleep device: ? Anytime you are sleeping, including during daytime naps. ? While taking prescription pain medicines, sleeping medicines, or medicines that make you drowsy. If you smoke, do not smoke without supervision. Keep all follow-up visits as told by your health care provider. This is important. Contact a health care provider if: You keep feeling nauseous or you keep vomiting. You feel light-headed. You develop a rash. You have a fever. Get help right away if: You have trouble breathing. Summary For several hours after your procedure, you may feel sleepy and have poor judgment. Have a responsible adult stay with you for at least 24 hours or until you are awake and alert. This information is not intended to replace advice given to you by your health care provider. Make sure you discuss any questions you have with your health care provider. Document Released: 05/19/2016 Document Revised: 04/27/2018 Document Reviewed: 05/19/2016 Watchwith Patient Education 2020 [employer] Colon Polyps Polyps are tissue growths inside the body. Polyps can grow in many places, including the large intestine (colon). A polyp may be a round bump or a mushroom-shaped growth. You could have one polyp or several. Most colon polyps are noncancerous (benign). However, some colon polyps can become cancerous over time. Finding and removing the polyps early can help prevent this. What are the causes? The exact cause of colon polyps is not known. What increases the risk? You are more likely to develop this condition if you: Have a family history of colon cancer or colon polyps. Are older than 50 or older than 45 if you are . Have inflammatory bowel disease, such as ulcerative colitis or Crohn's disease. Have certain hereditary conditions, such as: ? Familial adenomatous polyposis. ? Mendoza syndrome. ? Turcot syndrome. ? Peutz Jeghers syndrome. Are overweight. Smoke cigarettes. Do not get enough exercise. Drink too much alcohol. Eat a diet that is high in fat and red meat and low in fiber. Had childhood cancer that was treated with abdominal radiation. What are the signs or symptoms? Most polyps do not cause symptoms. If you have symptoms, they may include: Blood coming from your rectum when having a bowel movement. Blood in your stool. The stool may look dark red or black. Abdominal pain. A change in bowel habits, such as constipation or diarrhea. How is this diagnosed? This condition is diagnosed with a colonoscopy. This is a procedure in which a lighted, flexible scope is inserted into the anus and then passed into the colon to examine the area. Polyps are sometimes found when a colonoscopy is done as part of routine cancer screening tests. How is this treated? Treatment for this condition involves removing any polyps that are found. Most polyps can be removed during a colonoscopy. Those polyps will then be tested for cancer. Additional treatment may be needed depending on the results of testing. Follow these instructions at home: Lifestyle Maintain a healthy weight, or lose weight if recommended by your health care provider. Exercise every day or as told by your health care provider. Do not use any products that contain nicotine or tobacco, such as cigarettes and e-cigarettes. If you need help quitting, ask your health care provider. If you drink alcohol, limit how much you have: ? 0 1 drink a day for women. ? 0 2 drinks a day for men. Be aware of how much alcohol is in your drink. In the [place] one drink equals one 12 oz bottle of beer (355 mL), one 5 oz glass of wine (148 mL), or one 1 oz shot of hard liquor (44 mL). Eating and drinking Eat foods that are high in fiber, such as fruits, vegetables, and whole grains. Eat foods that are high in calcium and vitamin D, such as milk, cheese, yogurt, eggs, liver, fish, and broccoli. Limit foods that are high in fat, such as fried foods and desserts. Limit the amount of red meat and processed meat you eat, such as hot dogs, sausage, esquivel, and lunch meats. General instructions Keep all follow-up visits as told by your health care provider. This is important. ? This includes having regularly scheduled colonoscopies. ? Talk to your health care provider about when you need a colonoscopy. Contact a health care provider if: You have new or worsening bleeding during a bowel movement. You have new or increased blood in your stool. You have a change in bowel habits. You lose weight for no known reason. Summary Polyps are tissue growths inside the body. Polyps can grow in many places, including the colon. Most colon polyps are noncancerous (benign), but some can become cancerous over time. This condition is diagnosed with a colonoscopy. Treatment for this condition involves removing any polyps that are found. Most polyps can be removed during a colonoscopy. This information is not intended to replace advice given to you by your health care provider. Make sure you discuss any questions you have with your health care provider. Document Released: 10/23/2004 Document Revised: 05/14/2018 Document Reviewed: 05/14/2018 [employer]with Patient Education 2020 [email or web address]. Additional Information VACCINATE! IT SAVES LIVES! Members of the community who have not yet received the COVID-19 vaccine and would like to receive it can visit one of [facility] vaccine clinics. There are many vaccine clinic locations within the [facility]. For locations and available times, please visit [email or web address] It is important to note that some COVID mobile vaccine clinics are held outdoors and may be canceled in rainy or stormy conditions. To learn more about pediatric vaccinations (ages 5-11), we invite you to visit the [facility] webpage. [email or web address] learn more about the COVID-19 vaccine, we invite you to visit the [facility] website for a list of frequently asked questions. [email or web address].pdf [facility] Patient [facility] Access Instructions: Stay connected with your healthcare team and access your personal medical information anytime with the [facility] Patient Portal.If you would like a full copy of your medical records, please contact the [facility] Medical Records Department, Friday through Friday between 8a.m. and 4:30p.m. Please follow the directions below to access the portal: 1.Access the email account you provided upon registration to the [facility].2.Look for an invitation email from [facility].3.Open the email and access the invitation link: Accept Invitation to [facility]4.Fill in the required rivera to create your account. Sign into [email or web address] with your username and password that you created in the above steps to stay up to date. You can then view a summary of results, a summary of your visits, and the ability to download your summaries to your computer or send the information securely to a physician. Remember that your healthcare information is confidential, so carefully consider who you will allow to register on the [facility] Patient Portal for access to your information. You can also access the [employer] Patient Portal on the [employer] yt. Simply click on "Health Records" under "HealthData" and then click on the [employer] logo. HOW TO SAFELY DISPOSE OF PRESCRIPTION MEDICATIONS Please use one of the following methods to safely dispose of your unused medications. 1.Use a drug disposal kit: the drug disposal pouch allows you to safely discard your old and unuseddrugs. Ask your nurse to give you one when you are discharged.2.Visit a local take-back location: Many local pharmacies and police departments have programs that collect old and unwanted prescriptiondrugs. Call your local pharmacy or go to http://bit.ly/7E6Yi6f to find one close to you.3.Make use of household items: Use cat litter or old coffee grounds to dispose medications if other options arenot available. Mix your drugs with these household products, seal them in an airtight container andthrow it into the garbage. Call [facility]: [phone] to be sure your drugs can be disposed of in this way. Some medicines may require a different approach.4.Never flush your medications down the toilet. IF YOU HAVE BEEN PRESCRIBED AN OPIOID FOR PAIN If you have been prescribed an opioid (such as hydrocodone, oxycodone or morphine), it is critical to understand the possible side effects and risks of opioid pain medications. Even when taken as directed, opioids can have several side effects including: Tolerance, meaning you might need to take more of a medication for the same pain relief. Nausea, vomiting and/or constipation. Sleepiness, dizziness, dry mouth, confusion, depression or itching. Physical dependence, meaning you have withdrawal symptoms when a medication is stopped, can develop within a few days. KNOW YOUR RESPONSIBILITIES It is important to know exactly how much and how often to take the opioid pain medications you are prescribed. Never take opioids in higher amounts or more often than prescribed. Do not combine opioids with alcohol or other drugs that cause drowsiness, such as benzodiazepines, also known as benzos, including diazepam and alprazolam, muscle relaxants or sleep aids. Never sell or share prescription opioids. This is illegal. Store opioids in a secure place and out of reach of others (including children, family, friends and visitors). The last page of this document has been signed and retained as a CHART COPY. Signatures Patient Education Materials Nausea and Vomiting, Adult, [id number] Monitored Anesthesia Care, Care After Colon Polyps Medication Leaflets My discharge plan and instructions have been reviewed and explained to me and IGREGORIA PAUL E understand my current condition and have read and understand these discharge instructions. I have received a written copy of the plan/instructions. If I have questions, I am aware that I should contactmy doctor. 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: Date/Time: Relationship to Patient: Witness Name/Signature: Date/Time: [facility]02-13-2023 Anesthesiology Consult note Patient: DAMI KINNEY Age: 71 years Sex: Male : 1950 Associated Diagnoses: None Author: RISHI MENDOZA Assessment Postanesthesia assessment Vitals: Vital signs from flowsheet : Vital Signs 03/25/2022 9:10 EST Heart Rate Monitored 85 bpm bpm Respiratory Rate - Anes 18 br/min br/min 03/25/2022 9:05 EST Heart Rate Monitored 94 bpm bpm Respiratory Rate - Anes 18 br/min br/min Systolic Blood Pressure Non-Invasive 137 mmHg mmHg Diastolic Blood Pressure Non-Invasive 80 mmHg mmHg 03/25/2022 9:00 EST Heart Rate Monitored 92 bpm bpm Respiratory Rate - Anes 18 br/min br/min Systolic Blood Pressure Non-Invasive 153 mmHg mmHg Diastolic Blood Pressure Non-Invasive 80 mmHg mmHg 03/25/2022 8:55 EST Heart Rate Monitored 94 bpm bpm Respiratory Rate - Anes 18 br/min br/min Systolic Blood Pressure Non-Invasive 153 mmHg mmHg Diastolic Blood Pressure Non-Invasive 88 mmHg mmHg 03/25/2022 8:50 EST Systolic Blood Pressure Non-Invasive 157 mmHg mmHg Diastolic Blood Pressure Non-Invasive 137 mmHg mmHg 03/25/2022 7:44 EST Temperature Temporal Artery 36.4 DegC Peripheral Pulse Rate 104 bpm HI Respiratory Rate 17 br/min Systolic Blood Pressure Non-Invasive 165 mmHg HI Diastolic Blood Pressure Non-Invasive 86 mmHg Blood Pressure Method Automatic Blood Pressure Location Left arm Blood Pressure Cuff Size Medium . Mental status: at preoperative baseline. Respiratory function: lungs are clear to auscultation, respirations are non-labored. Respiratory support: none. CV function: Normal rate, Regular rhythm. Cardiovascular support: none. Pain: Self-reports no pain, Post op control No intervention needed. Nausea status: denies nausea. Postoperative hydration status: within normal limits. Digitally Signed by RISHI MENDOZA on 03/25/2022 09:12 AM [facility]02-13-2023 Note [place] ADMISSION HISTORY AND PHYSICIAL CHIEF COMPLAINT: HISTORY OF PRESENT ILLNESS: REVIEW OF SYSTEMS: ACTIVE PROBLEMS: (1) High blood pressure ([id number]) MEDICATIONS: Active Inpt Meds: None Active PRN Meds: None One Time Meds: None Active IV Meds: Lactated Ringers Infusion 1,000 mL (LR 1,000 mL) Start: 03/25/22 7:38:00 EST, Rate: 50 mL/hr, 03/25/22 7:38:00 EST ALLERGIES: (1) NKA FAMILY HISTORY: SOCIAL HISTORY: PHYSICAL EXAM: VITALS: [id number](kg) 03/25 07:4436.4--[id number]/13 93.2 24 Hr Tmax: 36.4 at 03/25 07:44 36 Hr Tmax: 36.4 at 03/25 07:44 Vital Signs are the last 5 in the past 48 hours. Weights display the last 5 within 7 days. Initial Wt: 03/25 93.2 kg 205 lb Current Wt: 03/25 93.2 kg 205 lb GENERAL: HEENT: CARDIOVASCULAR: RESPIRATORY: ABDOMEN: EXREMETIES: NEUROLOGICAL: PSYCHIATRIC: LABS: No 36hr Lab Data DIAGNOSTICS: IMPRESSION: PLAN: History and Physical Update I have examined the patient; reviewed the H&P and there are no changes to the H&P unless noted below. History and Physical Update I have examined the patient; reviewed the H&P and there are no changes to the H&P unless noted below. Digitally Signed by KACY BEARDEN MD on 03/25/2022 08:51 AM [facility]02-13-2023 Anesthesiology Consult note Patient: DAMI KINNEY Age: 71 years Sex: Male : 1950 Associated Diagnoses: None Author: RISHI MENDOZA APRN-THERAPIST'S ASSISTANT Preoperative Information Anesthesia history Patient's history: negative. Family's history: negative. Health Status Allergies: Allergic Reactions (Selected) NKA, Allergies (1) ActiveReaction NKANone Documented Current medications: (Selected) Inpatient Medications Ordered LR 1,000 mL: 50 mL/hr, Intravenous Documented Medications Documented hydroCHLOROthiazide 12.5 mg oral tablet: TAKE 1 TABLET BY MOUTH ONCE DAILY losartan 50 mg oral tablet: TAKE 1 TABLET BY MOUTH ONCE DAILY tamsulosin 0.4 mg oral capsule: 0.4 mg, 1 cap(s), Oral, qDay, 30 cap(s), 0 Refill(s), Medications (1) Active Scheduled: (0) Continuous: (1) Lactated Ringers Infusion 1,000 mL 1,000 mL, Intravenous, 50 mL/hr PRN: (0) Problem list: Active Problems (1) High blood pressure Histories Past Medical History: No active or resolved past medical history items have been selected or recorded. Family History: Breast cancer Mother Hypertension Father Coronary artery disease Mother Procedure history: Appendectomy ([id number]). Cardioversion ([id number]). Hernia ([id number]). Comments: 03/25/2022 7:40 YNES Pina INGUINAL REPAIR Cataract ([id number]). Blood clot in eye ([id number]). Comments: 03/25/2022 7:40 YNES Pina EVACUATION Social History Social & Psychosocial Habits Alcohol 10/06/2018 Use: Current Type: Beer Frequency: 1-2 times per week Substance Abuse 10/07/2018 Use: Never Tobacco 10/07/2018 Tobacco Use: Never (less than 100 in l Home/Environment 03/25/2022 Domestic Concerns None Nutrition/Health 03/25/2022 Type of diet: Regular . Physical Examination Vital Signs 03/25/2022 7:44 EST Temperature Temporal Artery 36.4 DegC Peripheral Pulse Rate 104 bpm HI Respiratory Rate 17 br/min Systolic Blood Pressure Non-Invasive 165 mmHg HI Diastolic Blood Pressure Non-Invasive 86 mmHg Blood Pressure Method Automatic Blood Pressure Location Left arm Blood Pressure Cuff Size Medium Vital Signs(last 24 hrs) Last Charted Resp Rate 17 br/min (MAR 25 07:44) SBPH 165mmHg (MAR 25 07:44) DBP86 mmHg (MAR 25 07:44) BMI32.17 (MAR 25 07:44) Measurements from flowsheet : Measurements 03/25/2022 7:44 EST Height 170.2 cm Height in inches 67 inch(es) Admission Weight 93.2 kg Weight Lbs 205 lb Weight Method Actual [place] Body Weight 66.12 kg BSA Admission 2.05 BSA Admission 2.05 Body Mass Index 32.17 kg/m2 Body Mass Index 32.17 kg/m2 Admission Body Mass Index 32.17 m2 Pain assessment: Pain Assessment 03/25/2022 7:44 EST Primary Pain Intensity 0 Pain Scale Type 0-10 Pain scale . General: Alert and oriented. Airway: Normal temporomandibular joint mobility. Mallampati classification: II (soft palate, fauces, uvula visible). Dentition Evaluation: Dentures, partial plate. Respiratory: Lungs are clear to auscultation, Respirations are non-labored. Cardiovascular: Normal rate, Regular rhythm. Neurologic: Alert, Oriented. Review / Management Results review: No qualifying data available , Lab results 03/25/2022 7:55 EST Lactated Ringers Injection Begin Bag 1,000 mL mL 03/25/2022 7:44 EST Designated Person #1 We May Share MICHAEL BAIN [phone] Designated Person #1 Relationship Spouse Height 170.2 cm Height in inches 67 inch(es) Admission Weight 93.2 kg Weight Lbs 205 lb Weight Method Actual [place] Body Weight 66.12 kg BSA Admission 2.05 BSA Admission 2.05 Body Mass Index 32.17 kg/m2 Body Mass Index 32.17 kg/m2 Admission Body Mass Index 32.17 m2 Temperature Temporal Artery 36.4 DegC Peripheral Pulse Rate 104 bpm HI Respiratory Rate 17 br/min Systolic Blood Pressure Non-Invasive 165 mmHg HI Diastolic Blood Pressure Non-Invasive 86 mmHg Blood Pressure Method Automatic Blood Pressure Location Left arm Blood Pressure Cuff Size Medium Primary Pain Intensity 0 Pain Scale Type 0-10 Pain scale Heart Sounds ICU S1S2 Heart Rhythm Regular Oxygen Therapy Room air Oxygen Saturation 97 % Abdomen Description Non-distended, Symmetric, Soft Abdomen Palpation Non-Tender, Soft Bowel Sounds All Quadrants Present Urinary Elimination Voiding, no difficulties Status N/A Skin Description Robert Lee IV Present Present Hand Right 03/25/2022 22 gauge Peripheral IV Activity: Insert new site Peripheral IV Site Condition: No complications Extremity Movement Equal Characteristics of Speech Clear Level of Consciousness Alert MAGDALENA Yes Strength All Extremities Strong Affect/Behavior Appropriate, Calm, Cooperative Orientation Oriented x 4 Sensory Deficits None Infectious Disease Symptoms Patient states no symptoms Infectious Disease Recent Exposure No Alcohol and Drug Use No Employee of Institutional Living No Health Care Employee No History of Exposure to TB No History of Positive Chest X-Ray for TB No History of Positive TB Skin Test No Homeless No Known Immunosuppression No Recent Immigrant No Resident of Institutional Living No Bloody Sputum No Fatigue No Fever No Loss of Appetite No Night Sweats No Persistent Cough > 3 Weeks No Weight Loss No Allergies Yes Dry Cell Sealer On Yes Consent Form Signed Yes Patient Dressed In Hospital gown, No undergarments Pre-op Preparation Jewelry removed History & Physical Update On Chart Yes History & Physical On Chart Yes Bowel Prep Completed Yes Orientation Assessment Oriented x 4 Barriers to Learning None evident Teaching Method Explanation Preferred Written Language Wallisian Preferred Spoken Language Wallisian Information Given by Spouse Patient's Current Physicians DR MONTES Discharge To, Anticipated Home independently Activity Status ADL Awake Assistive Device None NPO Status Maintained Standard Safety ID band on, Call device within reach, Bed in low position, Wheels locked, Upper/Half-Length side-rails up, Safety level maintained, Non- Slip footwear Prev Test Positive/Diagnosis w/COVID-19 No Current Quarantine/Isolated any Illness No Any Contact with Sick Animals/Birds No Traveled Anywhere in Last 30 Days No Allergy Band on and Verified Yes Patient ID Band on and Verified Yes Implants Verified Yes Pacemaker/AICD Verified Yes Anesthesia Consent Signed Yes Last Fluid Intake 03/24/2022 17:00 Last Food Intake 03/24/2022 17:00 Last Void 03/25/2022 7:00 N/A Personal Devices, Patient Valuables None Admission Note-Nursing Procedure/Therapy Intake . Assessment and Plan [place] [employer]hesi[employer] (ASA) physical status classification: Class III. Anesthetic Preoperative Plan Anesthetic technique: MAC. Postoperative pain management: Per surgeon. Risks discussed: nausea, vomiting, hypotension, allergic reaction, serious complications. Informed consent: signed by patient. Digitally Signed by RISHI MENDOZA on 03/25/2022 07:57 AM [facility]ments Appointment Date:03/21/2023 10:00:00 AM Scheduled Provider: Location:[facility] Appointment Type:CV OV Appointment Date:04/04/2023 12:00:00 PM Scheduled Provider: Location:[facility] Appointment Type:EP Ablation RF-CARTO Appointment Date:05/16/2023 11:15:00 AM Scheduled Provider: Location:[facility] Appointment Type:CV OV [facility] Evaluation + Plan note Future Appointments Appointment Date:06/10/2023 01:45:00 PM Scheduled Provider: Location:[facility] Appointment Type:CV OV [facility] Evaluation noteNo assessment information available [facility] Work Phone: Evaluation note* Diagnosis Onset Date Resolution Status Atrial fibrillation chronic Essential hypertension chron ic Fatigue chronic History of PSVT (paroxysmal supraventricular tachycardia) resolved [facility] Work Phone: Evaluation note* Diagnosis Onset Date Resolution Status Admit Date Atrial fibrillation chronic Septe mber 2024 12:56pm Essential hypertension chronic Se ptember 2024 12:56pm History of PSVT (paroxysmal supraventricular tachycardia) resolved Se ptember 2024 12:56pm [facility] Work Phone: Hospital course Narrative No data available for this section [facility] Hospital Discharge instructions No data available for this section [facility] Progress note No data available for this section [facility] Reason for referral (narrative)No reason for referral information [facility] Work Phone: Chief Complaint and Reason for Visit Chief Complaint LEFT WRIST INJURY/ P AIN Chief Complaint EORDER Chief Complaint EORDER A-FLUTTER EORDER Reason for Visit Atrial fibrillation Essential hypertension Fatigue History of PSVT (paroxysmal supraventricular tachycardia) Chief Complaint Admit Date OVERDUE FU October 14, 2024 12:56pm Reason for Visit Admit Date Atrial fibrillation October 14, 2024 12:56pm Essential hypertension October 14 12:56pm History of PSVT (paroxysmal supraventric ular tachycardia) October 14, 2024 12:56pm Summary Purpose Family History Relationship Condition Age at Onset Recorded Date/T ivy mother Malignant neoplasm Unknown Chronic obstructive pulmonary disease Unk nown Cardiac disease Unknown No Family History Records Found Advance Directives No Advanced Directives Records FoundNo Advanced Directives Records Found Additional Source Comments Goals (unrecognized section and content) Goals may be documented in a n alternate sectionGoals may be documented in an alternate sectionGoals may be documented in an alternate section No data available for this sectionGoals may be documented in an alternate sectionGoals may be documented in an alternate section No data available for this section No data available for this sectionGoals may be documented in an alternate sectionGoals may be documented in an alternate sectionGoals may be documented in an alternate section Care Team (unrecognized sect ion and content) Care Team Personnel Name: BOSSMAN DAMIAN MD Member Role: Primary Care Physician Address: Address: [address] [place] [address]- [place] Care Team Related Persons Name: ODELL KINNEY Address: Home [address] [place] [address] Care Teams (unrecognized sec tion and content) Team Status: Active Member Role Status Dates Dr. Neil Damian MD Family Provider Active Dr. Neil Damian MD Primary Care Provider Activ e Team Status: Inactive Member Role Status Dates Dr. Neil Damian MD Primary Care Provider, Atte nding Provider Active Team Status: Inactive Member Role Status Dates Dr. Neil Damian MD Primary Care Provider, Attending Provider, Referring Provider Active Team Status: Active Member Role Status Dates Dr. Bossman Damian MD Family Provider Active Dr. Bossman Damian MD Primary Care Provider Acti ve Team Status: Inactive Member Role Status Dates Dr. Bossman Damian MD Primary Care Provider, Attending Provider, Referring Provider Active Team Status: Inactive Member Role Status Dates Dr. Neil Damian MD Primary Care Provider, Refe rring Provider Active Dr. Zane Bowles MD Attending Provider Active Team Status: Inactive Member Role Status Dates Dr. Neil Damian MD Primary Care Provider Activ e Dr. Zane Bowles MD Attending Provider, Referring Pr ovider Active Team Status: Active Member Role/Relationship Status Dates Dr. Bossman Damian MD Family Provider Active Dr. Bossman Damian MD Primary Care Provider Acti ve Team Status: Inactive Member Role/Relationship Status Dates Dr. Bossman Damian MD Primary Care Provider Acti ve Start: October 14, 2024 End: October 14, 2024 Dr. Bossmna Damian MD Referring Provider Active Start: October 14, 2024 End: October 14, 2024 Dr. Zane Bowles MD Attending Provider Active Start: October 14, 2024 End: October 14, 2024 (unrecognized sect ion and content) No Status Records FoundNo Status Records Found INFORMATION SOURCE (unrecogn ized section and content) DATE CREATED AUTHOR 04/12/2023 [facility] [place] [facility] DATE CREATED AUTHOR AUTHOR'S SRINIVAS PORRAS 10/16/2024 [facility] FOR RECORDS PERTAINING TO PATIENTS WHO ARE OR HAVE BEEN ENROLLED IN A CHEMICAL DEPENDENCY/SUBSTANCEABUSE PROGRAM, SOME INFORMATION MAY BE OMITTED. This clinical summary was aggregated from multiple sources. Caution should be exercised in using it in the provision of clinical care. This summary normalizes information from multiple sources, and as a consequence, information in this document may materially change the coding, format and clinical context of patient data. In addition, data may be omitted in some cases. CLINICAL DECISIONS SHOULD BE BASED ON THE PRIMARY CLINICAL RECORDS. [employer] provides no warranty or guarantee of the accuracy or completeness of information in this document.
[2024-11-26 10:49] LABS: AST(SGOT) 22 U/L (<=37); Alanine Aminotransfer ALT/SGPT 20 U/L (<=46); Albumin, Serum 4.2 g/dL (3.4-4.8); Alkaline Phosphatase 84 U/L (40-129); Anion Gap 11 (5-15); BUN 12 mg/dL (4-19); BUN/Creat Ratio 21.1 RATIO (10-20); Calcium,Total 9.5 mg/dL (7.6-11.0); Carbon Dioxide 24.6 mmol/L (21.0-32.0); Chloride 103 mmol/L (98-108); Cholesterol 161 mg/dL (<=200); Globulin 2.9 g/dL (2.2-4.2); Glucose 98 mg/dL (70-99); Low Density Lipoprotein Calc. 91 mg/dL; PSA,Total - Annual Screen 1.01 ng/mL (0.02-4.00); Potassium 4.0 mmol/L (3.3-5.1); Triglycerides 74 mg/dL; Very Low Density Lipoprotein 15 mg/dL (5-40); cholesterol:hdl ratio screen 2.90
== END | disposition home or self-care (01) ==
LOC: MFPLAB 08:40
PROVIDERS: PCP Family Medicine; Visit Provider Family Medicine
DX: I10 Essential (primary) hypertension (principal); Z12.5 Encounter for screening for malignant neoplasm of prostate
CPT/HCPCS: 36415; 80053; 80061; 84153; G0103